=== PATIENT | female | born 2005 | race Caucasian/White ===

== ENCOUNTER 2024-10-30 15:10 | Outpatient (OUT) | payer OTHER, SELFPAY ==
--- OUTSIDE RECORDS SUMMARY | 2022-07-23 09:14 | XMS_ITS | Continuity of Care Document ---
Author Organization [facility] Address [address] [place] [phone] Phone Care Team Providers Care Bus Starter Name Role Phone Marlena Nguyễn DO Unavailable Unavailable Advance Directives Directive Yes / No Effective Date File Name No Information Encounters Encounter Description Practice Location Reason(s) For Visit Diagnoses Date Provider [facility], [address] [place] [address], [id number], [place] tel:[phone] [facility] No Information 2022 Gopi Mendiola. [address] [place], [place], [id number], [place]. tel:[phone] Family History Family Member Type Diagnosis Age At Onset No Information Payers Payer name Insurance type Covered constitution party ID Authoriza tion(s) No Information Social History Type Description Quantity Date Captured Comments Sex Female Smoking Status No Information Chief Complaint And Reason For Visit No Information History Of Present Illness Encounter Date Complaint History Of Prese nt Illness No Information Instructions Date Instruction Additional Infor mation No Information Assessments Type Assessment Date No Information
--- OUTSIDE RECORDS SUMMARY | 2024-09-27 12:43 | XMS_ITS | Continuity of Care Document ---
Author Organization [facility] Address [address] [place] [id number] Phone Care Team Providers Care Past Due Accounts Clerk Name Role Phone Barak Mata M.D. Unavailable Unavailable Allergies, Adverse Reactions, Alerts Substance Reaction Status Criticality doxycycline Skin rash(moderate)Itching(moderate)Hives (moderate) Active No Information Medications Medication Instructions Dosage Effective Dates (start - stop) Status Comments No Drug Therapy Prescribed Advance Directives Directive Yes / No Effective Date File Name No Information Encounters Encounter Description Practice Location Reason(s) For Visit Diagnoses Date Provider [facility], [address] [place] [address], [id number], [place] tel:[phone] [facility] No Information 5 Adolfo Cancino. [address] [place], [place], [id number], [place]. tel:[phone] [facility], [address] [place] [address], [id number], [place] tel:[phone] [facility] No Information 4 Agustina Bartholomew. [address] [place], [place], [id number], [place]. tel:[phone] [facility], [address] [place] [address], [id number], [place] tel:[phone] [facility] Preventive exam (chief complaint)Sc reenings. (chief complaint)ch ronic conditions (chief complaint) Body mass index (BMI) 26.0-26.9, adultEncounter for screening for depressionWell woman exam (no gynecological exam)Dietary counselingExercise counselingEncounter for immunizationImpacted cerumen of right earGeneralized anxiety disorderMajor depressive disorder, recurrent, unspecifiedBirth control counseling 4 Agustina Bartholomew. [address] [place], [id number], [place]. tel:[phone] [facility], [address] [place] [address], [id number], [place] tel:[phone] [facility] chronic conditions (chief complaint) Body mass index (BMI) 25.0-25.9, adultMajor depressive disorder, recurrent, unspecifiedGeneralized anxiety disorderAllergic drug rashChlamydia infection 4 Agustina Bartholomew. [address] [place], [place], [id number], [place]. tel:[phone] [facility], [address] [place] [address], [id number], [place] tel:[phone] [facility] depression. (chief complaint)Co ntraceptive. (chief complaint) Body mass index (BMI) 25.0-25.9, adultRecurrent major depressive episodesPoor concentrationFatigue, unspecified typeRoutine screening for STI (sexually transmitted infection)Counseling for control, oral contraceptivesEncounter to establish care with new doctorDietary counselingExercise counseling 4 Agustina Bartholomew. [address] [place], [place], [id number], [place]. tel:[phone] [facility], [address] [place] [address], [id number], [place] tel:[phone] [facility] No Information 4 Agustina Bartholomew. [address] [place], [place], [id number], [place]. tel:[phone] [facility], [address] [place] [address], [id number], [place] tel:[phone] [facility] depression (chief complaint) Depression with anxiety Jun-2 1 Deepaligustavo Zaria. [address] [place], [address], [place]. tel:[phone] [facility], [address] [place] [address], [id number], [place] tel:[phone] [facility] anxiety (chief complaint) Body mass index (BMI) 23.0-23.9, adultDepression with anxiety Jun-0 1 Deepaligustavo Zaria. [address] [place], [address], [place]. tel:[phone] [facility], [address] [place] [address], [id number], [place] tel:[phone] [facility] No Information 0 1 Deepaligretchenher Enciso. [address] [place], [address], [place]. tel:[phone] [facility], [address] [place] [address], [id number], [place] tel:[phone] [facility] Anxiety (chief complaint) Body mass index (BMI) 23.0-23.9, adultEncounter for screening for depressionDepression with anxiety May-2 1 Deepaligustavo Zaria. [address] [place], [address], [place]. tel:[phone] [facility], [address] [place] [address], [id number], [place] tel:[phone] [facility] Left ear pain. (chief complaint)Me d review. (chief complaint) BMI pediatric, 5th percentile to less than 85% for ageURI, acute 1 Gilberto Enciso. [address] [place], [address], [place]. tel:[phone] [facility], [address] [place] [address], [id number], [place] tel:[phone] [facility] No Information June. [address] [place] [address], [id number], [place]. tel:[phone] [facility], [address] [place] [address], [id number], [place] tel:[phone] [facility] control (chief complaint) control counseling 0 Gilberto Enciso. [address] [facility], [place], [address], [place]. tel:[phone] Family History Family Member Type Diagnosis Age At Onset Mother Problem (finding) depression Immunizations Vaccine Date Status Comments HPV9 administered Source: Other R egistry Influenza LAIV4 (FluMist) administered So urce: Other Registry HPV9 administered Source: Other R egistry Tdap (adol/adult) administered Source: [facility] Registry MenACWY-D (Menactra) administered Source: Other Registry Influenza LAIV4 (FluMist) administered So urce: Other Registry Influenza IIV3 (Inject) administered Sour ce: Other Registry Hep A (ped/adol) administered Source: Ot er Registry MMR administered Source: Other R egistry Varicella (Varivax) administered Source: Other Registry MMR administered Source: Other R egistry Hep A (ped/adol) administered Source: Ot er Registry IPV (polio) administered Source: Other R egistry DTaP (Daptacel) administered Source: Othe r Registry DTaP (pediatric) administered Source: Ot er Registry MMR administered Source: Other R egistry PCV7 (Prevnar) administered Source: Other Registry Hib (ActHib/Hiberix) administered Source: Other Registry MMR administered Source: Other R egistry Varicella (Varivax) administered Source: Other Registry Hep B (ped/adol) administered Source: Oth er Registry IPV (polio) administered Source: Other R egistry Hep B (ped/adol) administered Source: Oth er Registry Influenza IIV3 (Historical) administered Source: Other Registry PCV7 (Prevnar) administered Source: Other Registry Hib (ActHib/Hiberix) administered Source: Other Registry DTaP (pediatric) administered Source: Oth er Registry PCV7 (Prevnar) administered Source: Other Registry IPV (polio) administered Source: Other R egistry Hib (ActHib/Hiberix) administered Source: Other Registry DTaP (pediatric) administered Source: Oth er Registry PCV7 (Prevnar) administered Source: Other Registry IPV (polio) administered Source: Other R egistry Hib (ActHib/Hiberix) administered Source: Other Registry DTaP (pediatric) administered Source: Oth er Registry Hep B (ped/adol) administered Source: Ot er Registry Hep B (ped/adol) administered Source: Oth er Registry Hep B (ped/adol) administered Source: Ot er Registry Hep B (ped/adol) administered Source: Oth er Registry Payers Payer name Insurance type Covered constitution party ID 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) [facility] [id number] Social History Type Description Quantity Date Captured Comments Alcohol Use Details Unknown Caffeine Use Details Unknown Tobacco Use Status No Information Smoking Status No Information Sex Female Sexual Orientation Straight or heterosexual Jun Gender Identity Female Chief Complaint And Reason For Visit No Information Plan Of Treatment Date Type Action Status Goal Dietary management education , guidance, and counseling completed Goal Dietary management education , guidance, and counseling completed Goal Dietary management education , guidance, and counseling completed Goal Dietary management education , guidance, and counseling completed Goal Dietary management education , guidance, and counseling completed Goal Dietary management education , guidance, and counseling completed Referral Ordered: Neuropsych testing- Tru Madison, PhD -Psychologist (related to Poor concentration) ordered Referral Ordered: Referrals: Mental Health Counselor ordered Referral Referred To: Neuropsych testing- Tru Madison, PhD Ordered: Referrals: Psychologist. Neuropsych testing- Tru Madison, PhD. Evaluate and treat ordered Referral Ordered: Referrals: Mental Health Counselor. Evaluate and treat ordered History Of Present Illness Encounter Date Complaint History Of Prese nt Illness Chronic Conditions *See Chronic Conditions Template chronic conditions *See Chronic Conditions HPI Screenings. annual: 09/13/23pa p/hpv: screening at age 19mammo: screening at age 38. No Family H/O Breast Cancercolon: screening at age 45. No Family H/O Colon cancerDexa: screening at age 65.smoking: non-smokerlabs: 05/19/23iv/hcv: negative 05/19/23sti screening: abnormal 05/19/23 and treated --> repeat negativeSleep has improved significantly.Diet: She has started coking more meals at home and has been cutting back on fast food. She is eating 2-3 meals per day. She does snack a lot during the day. Always lunch and sometimes dinner. She drinks 1 cup of coffee in the morning. She has cut back on soda and caffeine. She has a water bottle that she takes to work, but doesn't know how much. Exercise: no exerciseSocial history- She lives with her grandparent. She feels safe at home. 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 She was told to call again if she gets state insurance. Preventive exam The patient stat es using oral contraceptive for control. Last LMP was 08/15/2023. Patient's menses is regular with normal flow with a frequency of every 28 days. Negative for: breast discharge, breast lump(s) and breast pain. Positive for: breast self exam. Associated symptoms include anxiety and depression. Pertinent negatives include abnormal bleeding (hematology), abnormal vaginal bleeding, decreased libido, difficulty falling sleep, sleep disturbances, urinary incontinence, urinary urgency, vaginal discharge and vaginal itching. chronic conditions *See Chronic Conditions HPI Chronic Conditions *See Chronic Conditions Template depression. Patient reports that a few years ago she came in to talk about her mental health and she was started on medications. She reports that she has noticed a lot of symptoms that she as experiencing then have started up again. Main symptoms - no energy, not wanting to get out of bed, crying a lot. She denies any SI/HI. Several years ago she did use to self harm - cutting. But is has been at least 2 years. She does feel like sometimes it is difficult to maintain focus and concentration. She does misplace things. Going though school she got ok grades - never failed a class. She had a hard time completing homework. She admits to fidgeting a lot. She is currently in her first year university doing online schooling through [employer]. Going ok. She has also had feelings of dreading going to work and feeling burnt out. 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 Family history of mental health disease - biological mother anxiety, depression, ADHD and a lot of mother's family had these conditions as well. Father also has depression, anxiety, and ADHD. She does have younger siblings who have ADHD a sister and brother. Patient has never been assessed for ADHD. Denies any family history of bipolar disorder or Autism. She reports history of trauma. She doesn't want to talk more about this, but has been in therapy in the past. Sleep: it is really difficult for her to fall asleep. She usually goes to sleep around 10/11 pm, but she has been struggling to fall asleep these last several weeks. When she eventually falls asleep, she will wake up once overnight occasionally. She wakes up between 6-7AM. She reports that when she cries it is usually at night. Diet: was eating a lot of fast food because she doesn't know how to really cook. She has tried to cut back in order to save some money. She is eating 1- 2 meals per day. Always lunch and sometimes dinner. She drinks 1 cup of coffee in the morning. She has cut back on soda and caffeine. She has a water bottle that she takes to work, but doesn't know how much. Exercise: no exerciseSocial history- She lives with her grandparent. She feels safe at home. - Rare alcohol use- Denies any nicotine products- Denies any recreational drug usePrevious treated with Wellbutrin and Lexapro in the past. The Wellbutrin helped more. Contraceptive. Patient would li ke to go back on control pills - tolerated the Alesse well. Patient states that she is currently sexually active with one sexual partner. She identifies as heterosexual. Her periods have been more painful/cramping and heavier these last several months. LMP 05/12/23. Usually lasts 3-4 days, q 28 days. She is not having any pain with intercourse or vaginal discharge. depression Associated sympt oms include depression, fatigue, feelings of guilt/worthlessness, headaches and suicidal ideation. Pertinent negatives include decreased appetite, difficulty concentrating, hallucinations, homicidal ideation, nausea or social withdrawal. Additional information: would like lexapro increased - doesn't feel like they are helped. depression (comments) Feels thin gs are OK at home and school, has had some suicidal thought, she has no plan or intent.Feels she is sleeping OK, falls asleep in her classes, she had not done that in the past, anxiety This is a follow up visit. There is continuation of initial symptoms. There is no improvement of initial symptoms or worsening of previously reported symptoms. The patient reports functioning as somewhat difficult. The patient presents with anxious/fearful thoughts, depressed mood, difficulty concentrating and thoughts of or suicide but denies difficulty falling asleep, difficulty staying asleep, excessive worry, fatigue, feelings of guilt, feelings of invulnerability, loss of appetite or poor judgment. The patient's risk factors include family history of anxiety. The anxiety is not with alcohol use, drug use, lack of sleep or social interactions. The patient's relieving factors are sunlight.The patient's symptoms are not relieved by drugs. The anxiety is associated with irritability. The patient denies any chronic pain, headache, nausea, vomiting and weight gain. Additional information: no plan or action for suicide, feels life at home and school are OK, she is cutting arms and legs at times. Sleep OK, no pot or street drugs, no ETOH She has a better appetitie since being on her meds, . Anxiety (comments) SHE is in 11t h grade, school is OK, good grades, no concerns with friends, she is not in sports at this time, but intends to do cheer. feels things are good at home.she is falling asleep but has problems staying asleep, feels tired in the AM, stays on her school schedule on the weekends,weight down 7#, no appetitie Anxiety This is an initi al visit. There is worsening of previously reported symptoms. The patient reports functioning as very difficult. The patient presents with anxious/fearful thoughts, compulsive thoughts, depressed mood, difficulty concentrating, difficulty staying asleep, diminished interest or pleasure, excessive worry, fatigue, feelings of guilt, loss of appetite and thoughts of or suicide but denies decreased need for sleep, difficulty falling asleep, easily startled, increased energy, hallucinations, poor judgment, racing thoughts or restlessness. The patient's risk factors include childhood abuse or neglect, family history of depression, family history of anxiety, family history of bipolar disorder, relationship problems and social isolation. The patient's risk factors exclude alcoholism, chronic illness, of a friend or loved one, drug abuse, financial worries, history of depression, history of suicidal attempts, recent childbirth, unemployment and victim of abuse or violence. The Anxiety is aggravated by conflict or stress, menstruation and winter season but not with alcohol use, lack of sleep or social interactions. The Anxiety is associated with irritability. The patient denies any headache, nausea, sweating, urinary frequency, vomiting and weight gain. Additional information: SHe has had this since middle school, she has been in counseling in the past and it never helped, started in ?January,. Med review. Pt. would like a refill on BC pills. LMP 03/15/2020. Left ear pain. Ear pain started x2 days ago and a slight sore throat. Denies fever, coughing, headache.Pt. came in with step mom who was tested for CV-19 yesterday; did not disclose at front office attendant. Rapid was negative but 2nd is not back. Asked her to leave office since we didn't have her results. Step mom left. control Would like to ta lk about control would like the pill. Medications Administered Medication Instructions Dosage Effective Dates (start - stop) Status Comments No Drug Therapy Prescribed Instructions Date Instruction Additional Infor dave Irrigated successfully. Related to Impacted cerumen of right ear You are doing well o n your current control, medication refill sent to pharmacy. You are up-to-date on your STI screening. Related to control counseling Management above Related to Gene ralized anxiety disorder You are doing well, no changes to medication: Wellbutrin XL 150 mg daily. The neuropsych eval for ADHD is on hold due to cost. Follow-up 6 months. Related to Major depressive disorder, recurrent, unspecified Discussed diet/lifes tyle changes that may help with weight loss and overall health. Discussed benefits of increasing fruits and vegetables to 3-5 servings daily, and whole grains while limiting processed foods, sugar, and salt. Make sure to drink at least 64 oz of water with limited juice, alcohol, or soda. Related to Dietary counseling Aerobic exercise enc ouraged, 30min 4-5 days a week. (150min/week total) for maintenance. Break up this time into smaller portions. Incorporate exercise into daily activities and encouraged including friends and family. Related to Exercise counseling Annual advice; Vital signs, risk factors, age appropriate preventative screening, laboratory testing and vaccinations were reviewed and addressed. Please take medications as prescribed and follow up as scheduled.Discussed the importance of regular dental check-ups every 6-12 months and an eye exam every 1-2 years. You will be due for your first pap smear next year. Related to Well woman exam (no gynecological exam) Up to date on vaccinations Relat ed to Encounter for immunization Dietary management e ducation, guidance, and counseling Related to Body mass index [BMI] 26.0-26.9, adult Standardized adult d epression screening tool completed Related to Encounter for screening for depression Previous positive ch lamydia screening, completed course of doxycycline. Repeat testing has been ordered. Related to Chlamydia infection Consider daily antih istamine such as Zyrtec, Claritin, or Zyrtec for 5 days +/- famotidine 20 mg twice per day x 5 days. Related to Allergic drug rash Management above Related to Gene ralized anxiety disorder Mood is doing much b lit - continue the Wellbutrin XL 150 mg daily. Follow up 3 months, sooner if needed. Changing referral for neuropsychic testing to [facility].Previously referred to therapy, in the phone tag loop. Related to Major depressive disorder, recurrent, unspecified Dietary management e ducation, guidance, and counseling Related to Body mass index [BMI] 25.0-25.9, adult Discussed diet/lifes tyle changes that may help with weight loss and overall health. Discussed benefits of increasing fruits and vegetables to 3-5 servings daily, and whole grains while limiting processed foods, sugar, and salt. Make sure to drink at least 64 oz of water with limited juice, alcohol, or soda. Related to Dietary counseling Aerobic exercise enc ouraged, 30min 4-5 days a week. (150min/week total) for maintenance. Break up this time into smaller portions. Incorporate exercise into daily activities and encouraged including friends and family. Related to Exercise counseling Screening ordered. Related to Ro utine screening for STI (sexually transmitted infection) Sent prescription fo r oral control pills to the pharmacy. Recommend initiating beginning of your next menstrual cycle. Do recommend using condoms to help prevent sexually transmitted infections. Urine test ordered to rule out before initiating control. Related to Counseling for control, oral contraceptives Previously on Wellbu blayne and tolerated it well. Update labs have been ordered. Start with Wellbutrin XL 150 mg daily x 2 weeks. If you are tolerating the medication and you would like to increase to 300 mg at one time you can. We reviewed the most common side effects of medication. Consider starting therapy. Will send a referral to our behavioral health team. You can also look for a therapist using the website [employer].If you are feeling actively suicidal, go to the ED!The suicide hotline number is 863-605-5096Ufu can also text HELP to 189-785.Follow up 1 month. Related to Recurrent major depressive episodes Referral for neurops ychiatric testing for ADHD assessment. Related to Poor concentration Will check blood wor k to look for organic causes of fatigue and depression. Provided handout on sleep hygiene. Related to Fatigue, unspecified type Dietary management e ducation, guidance, and counseling Related to Body mass index [BMI] 25.0-25.9, adult Dietary management e ducation, guidance, and counseling Related to Body mass index [BMI] 23.0-23.9, adult Dietary management e ducation, guidance, and counseling Related to Body mass index [BMI] 23.0-23.9, adult Management of mental health karthik tment Related to Encounter for screening for depression for child or adolescent Drinking plenty of f luids. Water, juice, clear broth or warm lemon water are good choices. Avoid caffeine and alcohol, which can dehydrate you. E ating chicken soup. Chicken soup and other warm fluids can be soothing and can loosen congestion. R esting. If possible, stay home from work or school if you have a fever or a bad cough or are drowsy after taking medications. This will give you a chance to rest as well as reduce the chances that you'll infect others. A djusting your room's temperature and humidity. Keep your room warm, but not overheated. If the air is dry, a cool-mist humidifier or vaporizer can moisten the air and help ease congestion and coughing. Keep the humidifier clean to prevent the growth of bacteria and molds S oothing your throat. A saltwater gargle 1/4 to 1/2 teaspoon salt dissolved in a 4-ounce to 8-ounce glass of warm water. Or 1/2 honey, 1/2 lemon mix. Related to URI, acute Exercises education, guidance, and counseling Related to Body mass index [BMI] pediatric, 5th percentile to less than 85th percentile for age Dietary management e ducation, guidance, and counseling Related to Body mass index [BMI] pediatric, 5th percentile to less than 85th percentile for age Assessments Type Assessment Date No Information
--- OUTSIDE RECORDS SUMMARY | 2024-10-25 14:00 | XMS_ITS | Encounter Summary ---
Demographics Address [address] [place] [address] Home Phone Mobile Phone Preferred Language en Marital Status Unmarried Episcopalian Affiliation Unknown Race Other Race Ethnic Group Unknown Author Organization [facility] Address [address] [place] [address] Care Team Providers Care Career Developer Name Role Phone Unavailable Primary Care Provider Unavailabl e Encounter Details Date Type Department Care Team (Latest Contact Info) Description 10/25/2024 2:00 PM EDT Ancillary Procedure BRITTANY KRUSE [address] [place] [address] Missed menses; Positive urine test ([facility]) Social History Tobacco Use Types Packs/Day Years Used Date Smoking Tobacco: Never Assessed Estimated Date of Delivery Comme nts Yes 05/23/2025 Based on last me nstrual period of 08/16/2024 Sex and Gender Information Value Date Recorded Sex Assigned at Not on file Legal Sex Female 10:34 AM EDT Gender Identity Not on file Sexual Orientation Not on file documented as of this encounter Plan of Treatment Upcoming Encounters Date Type Department Care Team (Late st Contact Info) Description 11/26/2024 9:20 AM EDT Routine BRITTANY KRUSE [address] [place] [address] Bernardo Montes DO [address] [place], [place] [id number] documented as of this encounter Procedures Procedure Name Priority Date/Time Associated Diagnosis Comments US OB TRANSVAGINAL Routine 10/25/2024 2: 42 PM EDT Missed menses [facility] documented in this encounter Results * US OB transvaginal (10/25/2024 2:42 PM EDT) Anatomical Region Laterality Modality Body Ultrasound 10/28/2024 8:22 AM EDT Narrative 10/28/2024 8:22 AM EDT EXAM: US OB TRANSVAGINAL HISTORY: Dating. COMPARISON: None available. TECHNIQUE: Two-dimensional transvaginal grayscale ultrasound imaging of the pelvis was performed. Color Doppler evaluation of the ovaries was also performed. FINDINGS: The uterus demonstrates a normal homogeneous echotexture. The cervix measures 4.0 cm in length and the cervical os is closed. The right ovary measures 2.4 x 2.0 x 2.1 cm and demonstrates a normal echotexture. There is normal color Doppler flow. The left ovary measures 2.6 x 1.9 x 2.1 cm and demonstrates a normal echotexture. There is normal color Doppler flow. No fluid is present within the cul-de-sac. There is a single, live intrauterine gestation identified with a heart rate of 148 beats per minute and a crown-rump length measurement of 2.9 cm, correlating to a gestational age of 9 weeks 5 days (+/- 6 days). There is no subchorionic hemorrhage visualized. A yolk sac is visualized. IMPRESSION: 1. Single, live intrauterine gestation 10 weeks, 0 days by LMP. Today's ultrasound measurements correlate with a gestational age of 9 weeks 5 days (+/- 6 days). CORONA by today's ultrasound is 05/25/2025. 2. Normal color Doppler evaluation of the bilateral ovaries. Interpreted by: Electronically signed by PRATEEK BAUGH II, MD, PHD at 28-Oct-2024 08:20:23 AM [facility] Procedure Note Prateek Baugh MD - 10/28/2024 EXAM: US OB TRANSVAGINAL HISTORY: Dating. COMPARISON: None available. TECHNIQUE: Two-dimensional transvaginal grayscale ultrasound imaging ofthe pelvis was performed. Color Doppler evaluation of the ovaries was alsoperformed. FINDINGS: The uterus demonstrates a normal homogeneous echotexture. The cervixmeasures 4.0 cm in length and the cervical os is closed. The right ovary measures 2.4 x 2.0 x 2.1 cm and demonstrates a normalechotexture. There is normal color Doppler flow. The left ovary measures 2.6 x 1.9 x 2.1 cm and demonstrates a normalechotexture. There is normal color Doppler flow. No fluid is present within the cul-de-sac. There is a single, live intrauterine gestation identified with a fetalheart rate of 148 beats per minute and a crown-rump length measurement of2.9 cm, correlating to a gestational age of 9 weeks 5 days (+/- 6 days).There is no subchorionic hemorrhage visualized. A yolk sac isvisualized. IMPRESSION: 1. Single, live intrauterine gestation 10 weeks, 0 days by LMP. Today'sultrasound measurements correlate with a gestational age of 9 weeks 5days (+/- 6 days). CORONA by today's ultrasound is 05/25/2025. 2. Normal color Doppler evaluation of the bilateral ovaries. Interpreted by: Electronically signed by PRATEEK BAUGH II, MD, PHD [id number] 08:20:23 AM [facility] us Bernardo PEARSON OB US PROCEDURES Final Resul t documented in this encounter Visit Diagnoses Diagnosis Missed menses Positive urine test ([facility]) documented in this encounter
--- OUTSIDE RECORDS SUMMARY | 2024-10-25 14:30 | XMS_ITS | Encounter Summary ---
Demographics Address [address] [place] [address] Home Phone Mobile Phone Preferred Language en Marital Status Unmarried Synagogue Affiliation Unknown Race Other Race Ethnic Group Unknown Author Organization [facility] Address [address] [place] [address] Care Team Providers Care Caustic Room Operator Name Role Phone Unavailable Primary Care Provider Unavailabl e Encounter Details Date Type Department Care Team (Late st Contact Info) Description 10/25/2024 2:30 PM EDT Initial [facility] [address] [place] [place] [id number] GA: 10w0d Social History Tobacco Use Types Packs/Day Years Used Date Smoking Tobacco: Never Assessed Estimated Date of Delivery Comme nts Yes 05/23/2025 Based on last me nstrual period of 08/16/2024 Sex and Gender Information Value Date Recorded Sex Assigned at Not on file Legal Sex Female 10:34 AM EDT Gender Identity Not on file Sexual Orientation Not on file documented as of this encounter Last Filed Vital Signs Vital Sign Reading Time Taken Comments Blood Pressure - - Pulse - - Temperature - - Respiratory Rate - - Oxygen Saturation - - Inhaled Oxygen Concentration - - Weight - - Height 160 cm (5' 3 ) 10/25/2024 2:43 PM EDT Body Mass Index - - documented in this encounter Progress Notes * Meena Bowen LPN - 10/25/2024 2:30 PM EDT Reason for Appointment: Patient ID: Kamini Batista is a 19 y.o. female who presents for No chief complaint on file. Patient presents today for a Nurse OB Intake appointment. Patient is 10w0d with a Estimated Date ofDelivery: 05/23/25 OB History Para Term AB Living 5 2 2 2 SAB IAB Ectopic Multiple Live Births 2 # Outcome Date GA Lbr Conrado/2nd Weight Sex Type Anes PTL Lv 5 Current 4 Term 02/21/24 7 lb 1 oz F Vag-Spont 3 2022 2 Term 11/04/21 6 lb 8 oz F Vag-Spont 1 2020 Current Medications: has a current medication list which includes the following prescription(s): ondansetron odt. Medical History: Active Ambulatory Problems Diagnosis Date Noted No Active Ambulatory Problems Resolved Ambulatory Problems Diagnosis Date Noted No Resolved Ambulatory Problems No Additional Past Medical History No family history on file. Social History Tobacco Use Smoking status: Not on file Smokeless tobacco: Not on file Substance Use Topics Alcohol use: Not on file Drug use: Not on file Past Surgical History: Procedure Laterality Date D&C FIRST TRIMESTER / TX INCOMPLETE / MISSED / SEPTIC / INDUCED No Known Allergies Vitals: There is no height or weight on file to calculate BMI. BP: Patient's last menstrual period was 08/16/2024. Assessment/Plan Diagnoses and all orders for this visit: Missed menses - US OB transvaginal; Future - Type and screen; Future - ABO/Rh; Future - CBC and differential - Hemoglobin A1c - RPR - Rubella antibody, IgG - Hepatitis B surface antigen - Hepatitis C antibody - HIV-1 and HIV-2 antibodies - Urine culture - POCT , urine manually resulted - POCT urinalysis dipstick manually resulted Positive urine test ([facility]) - US OB transvaginal; Future , unspecified gestational age ([facility]) - Type and screen; Future - ABO/Rh; Future - CBC and differential - Hemoglobin A1c - RPR - Rubella antibody, IgG - Hepatitis B surface antigen - Hepatitis C antibody - HIV-1 and HIV-2 antibodies - Rapid drug screen, urine; Future Encounter for supervision of normal first in first trimester ([facility]) - Rapid drug screen, urine; Future Nausea - ondansetron ODT (Zofran-ODT) 4 MG disintegrating tablet; Take 1 tablet (4 mg) by mouth every 6 (six) hours if needed for nausea or vomiting Nurse Note: Follow Up: Patient is to have labs drawn at directed and return to office for initial OB appointment with provider. Patient may call office as needed with any concerns or questions. Nurse Visit Completed by: Meena Bowen LPN documented in this encounter Plan of Treatment Upcoming Encounters Date Type Department Care Team (Late st Contact Info) Description 11/26/2024 9:20 AM EDT Routine [facility] [address] [place] [address] Bernardo Montes DO [address] [place] [address] Scheduled Orders Name Type Priority Associated Diagnoses Orde r Schedule Type and screen Lab Routine Missed menses , unspecified gestational age ([facility]) Expected: 10/25/2024 (Approximate), Expires: 10/25/2025 ABO/Rh Lab Routine Missed menses , unspecified gestational age ([facility]) Expected: 10/25/2024 (Approximate), Expires: 10/25/2025 CBC and differential Lab Routine Missed menses , unspecified gestational age ([facility]) Ordered: 10/25/2024 Hemoglobin A1c Lab Routine Missed menses , unspecified gestational age ([facility]) Ordered: 10/25/2024 RPR Lab Routine Missed menses , unspecified gestational age ([facility]) Ordered: 10/25/2024 Rubella antibody, IgG Lab Routine Missed menses , unspecified gestational age ([facility]) Ordered: 10/25/2024 Hepatitis B surface antigen Lab Routine Missed menses , unspecified gestational age ([facility]) Ordered: 10/25/2024 Hepatitis C antibody Lab Routine Missed menses , unspecified gestational age ([facility]) Ordered: 10/25/2024 HIV-1 and HIV-2 antibodies Lab Routine Missed menses , unspecified gestational age ([facility]) Ordered: 10/25/2024 Urine culture Microbiology Routine Missed menses Ordered: 10/25/2024 Rapid drug screen, urine Lab Routine , unspecified gestational age ([facility]) Encounter for supervision of normal first in first trimester ([facility]) Expected: 10/25/2024 (Approximate), Expires: 10/25/2025 documented as of this encounter Procedures Procedure Name Priority Date/Time Associated Diagnosis Comments POCT , URINE Routine 10/25/2024 3:12 PM EDT Missed menses POCT URINALYSIS DIPSTICK Routine 10/25/2024 3:12 PM EDT Missed menses documented in this encounter Results * (ABNORMAL) POCT urinalysis dipstick manually resulted (10/25/2024 3:12 PM EDT) Color, UA [place] Clarity, UA Clear Glucose, UA Negative Negative - 2000(110) ++++ mg/dL Bilirubin, UA Negative Negative - 4(70) +++ mg/dL Ketones, UA Negative Negative - 160(16) ++++ mg/dL Spec Grav, UA 1.025 1 - 1.03 Blood, UA Negative Negative - 50 Cj/mcL pH, UA 6.0 5 - 9 Protein, UA Negative Negative - 2000(20) ++++ mg/dL Urobilinogen, UA 1.0 0.2 - 12 mg/dL Leukocytes, UA Negative Negative - 500+++ Sol/mcL Nitrite, UA Negative Negative - Positive Urine 10/25/2024 3:12 PM EDT us Bernardo Simon DO POINT OF CARE TEST ENTER/EDIT OR DERABLES Final Result * POCT , urine manually resulted (10/25/2024 3:12 PM EDT) Preg Test, Ur Positive Negative Urine 10/25/2024 3:12 PM EDT us Bernardo Simon DO POINT OF CARE TEST ENTER/EDIT OR DERABLES Final Result * US OB transvaginal (10/25/2024 2:42 PM [...] II, MD, PHD at 28-Oct-2024 08:20:23 AM [facility] Procedure Note Prateek Baugh MD - [...] signed by PRATEEK BAUGH II, MD, PHD [id number] 08:20:23 AM [facility] us Bernardo Montes DO IMG OB US PROCEDURES Final Resul t documented in this encounter Visit Diagnoses Diagnosis Missed menses Positive urine test ([facility]) Missed menses Positive urine test ([facility]) , unspecified gestational age ([facility]) Encounter for supervision of normal first in first trimester ([facility]) Nausea Nausea alone documented in this encounter
--- OUTSIDE RECORDS SUMMARY | 2024-10-30 15:17 | XMS_ITS | Encounter Summary ---
Author Organization [facility] Address [address] [place] [address] Care Team Providers Care Destaticizer Feeder Name Role Phone Unavailable Primary Care Provider Unavailabl e Encounter Details Date Type Department Care Team (Late st Contact Info) Description 10/25/2024 Abstract BRITTANY KRUSE [facility] [place] [phone] Bernardo Montes, DO [address] [place], [place] [address] Social History Tobacco Use Types Packs/Day Years [...] 11/26/2024 9:20 AM EDT Routine BRITTANY KRUSE [facility] [place] [phone] Bernardo Montes, [address] [place], [facility] documented as of this encounter Visit Diagnoses Not on filedocumented in this encounter
--- OUTSIDE RECORDS SUMMARY | 2024-10-30 15:17 | XMS_ITS | Clinical Summary ---
Demographics Address [address] [place] [address] Home Phone Mobile Phone Preferred Language en Marital Status Unmarried Restoration Affiliation Unknown Race Other Race Ethnic Group Unknown Author Organization [facility] Address [address] [place] [address] Care Team Providers Care Workday Manager Name Role Phone Unavailable Primary Care Provider Unavailabl e Allergies No known active allergies Medications ondansetron ODT (Zofran-ODT) 4 MG disintegrating tabletIndications:N ausea Take 1 tablet (4 mg) by mouth every 6 (six) hours if needed for nausea or vomiting 30 tablet 2 5 11/25/19 25 Active Encounters Date Type Department Care Team Description 10/25/2024 2:30 PM [place] [address] GA: 10w0d 10/25/2024 2:00 PM EDT [place] [address] Missed menses; Positive urine test ([facility]) 10/25/2024 [place] [address] Bernardo Montes DO 10/25/2024 [place] [address] Bernardo Montes DO from Last 3 Months Social History Tobacco Use Types Packs/Day Years Used Date Smoking Tobacco: Never Assessed Estimated Date of Delivery Comme nts Yes 05/23/2025 Based on last me nstrual period of 08/16/2024 Sex and Gender Information Value Date Recorded Sex Assigned at Not on file Legal Sex Female 10:34 AM EDT Gender Identity Not on file Sexual Orientation Not on file Last Filed Vital Signs Vital Sign Reading Time Taken Comments Blood Pressure - - Pulse - - Temperature - - Respiratory Rate - - Oxygen Saturation - - Inhaled Oxygen Concentration - - Weight - - Height 160 cm (5' 3 ) 10/25/2024 2:43 PM EDT Body Mass Index - - Plan of Treatment Upcoming Encounters Date Type Department Care Team (Late st Contact Info) Description 11/26/2024 9:20 AM EDT Routine [facility] [address] [place] [phone] SimonBernardo cronin DO [address] [facility] [place] [address] Procedures Procedure Name Priority Date/Time Associated Diagnosis Comments POCT URINALYSIS DIPSTICK Routine 10/25/2024 3:12 PM EDT Missed menses POCT , URINE Routine 10/25/2024 3:12 PM EDT Missed menses OB TRANSVAGINAL Routine 10/25/2024 2: 42 PM EDT Missed menses Positive urine test ([facility]) from Last 3 Months Results * POCT , urine manually resulted (10/25/2024 3:12 PM EDT) Preg Test, Ur Positive Negative Urine 10/25/2024 3:12 PM EDT Bernardo Montes DO POINT OF CARE TEST ENTER/EDIT OR DERABLES Final Result * (ABNORMAL) POCT urinalysis dipstick manually resulted [...] Urine 10/25/2024 3:12 PM EDT us Bernardo Tateo DO POINT OF CARE TEST ENTER/EDIT OR [...] II, MD, PHD at 28-Oct-2024 08:20:23 AM [facility] Procedure Note Prateek Baugh MD - [...] signed by PRATEEK BAUGH II, MD, PHD [id number] 08:20:23 AM [facility] us Bernardo Montes DO IMG OB US PROCEDURES Final Resul t from Last 3 Months Insurance * Guarantor: Kamini Batista Account Type Relation to Patient Date of Phone Billing Address Personal/Family Self [address] [facility] [address] [place] [address] [employer] MEDICAID
--- OUTSIDE RECORDS SUMMARY | 2024-10-30 15:17 | XMS_ITS | Encounter Summary ---
Author Organization [facility] Address [address] [place] [address] Care Team Providers Care Snowboarding Instructor Name Role Phone Unavailable Primary Care Provider Unavailabl e Encounter Details Date Type Department Care Team (Late st Contact Info) Description 10/25/2024 Abstract BRITTANY KRUSE [facility] [place] [phone] Bernardo Montes, DO [address] [place], [place] [address] Social History Tobacco Use Types Packs/Day Years [...] 11/26/2024 9:20 AM EDT Routine BRITTANY KRUSE [facility] [place] [phone] Bernardo Montes, [address] [place], [facility] documented as of this encounter Visit Diagnoses Not on filedocumented in this encounter
--- OUTSIDE RECORDS SUMMARY | 2024-10-30 15:18 | XMS_ITS | Patient Health Record ---
Author Organization Coleman dickens MD, [facility] Address [address] [place] [address] Care Team Providers Care Creative Writing Professor Name Role Phone Earnest Wallace DO Primary Care Provider John Cee MD, Brianda Unavailable [phone] Social History Tobacco Use: Social History Observation Description Date Details (start date - stop date) Never Smoker NA - NA Smoking: Question Answer Notes Patient is a nonsmoker Section Notes: 4-6 glasses of fluid daily ( water, milk & juice) 4-6 glasses of fluid daily ( water, milk & juice) 4-6 glasses of fluid daily ( water, milk & juice) 4 glasses of fluid daily 4-6 glasses of fluid daily ( water, milk & juice) Problems Problem Type SNOMED Code ICD Code Onset Dates Problem Status W/U Status Risk Notes Problem CARDIAC MURMURS NEC (785.2) Active confirmed Plan Of Treatment Pending Test Test Name Order Date Echo Full with Color/ Doppler 10/23/2009 Echo Full with Color/ Doppler 02/23/2012 Insurance Providers Payer Name Payer Address Payer Phone Subscriber Number Group Number Insured Name Patient Relationship to Insured Coverage Start Date Coverage End Date [employer] [address] [address] [place] [address] [id number] [id number] Kamini Lyons Self - patient is the insured 5 Medical (General) History Medical History History ICD Code Cardiac murmur since 1 year of age
--- OUTSIDE RECORDS SUMMARY | 2024-10-30 15:18 | XMS_ITS | Clinical Summary ---
Demographics Address [address] [place] [address] Mobile Phone Email Address Preferred Language Estonian Marital Status Significant Other Christian Affiliation Unknown Race Unknown Ethnic Group Unknown Author Organization [facility] Address [id number] [address] [place] [address] Care Team Providers Care Telegraph Installer Name Role Phone Cherelle Valdez Davion BIRD TENDER-FILTER PRESS OPERATOR Primary Care Provider + Allergies No known active allergies Medications vit no.[id number] c acid ( VITAMIN) 27 mg iron- 800 mcg tabletIndication s:Lactating mother Take 1 tablet by mouth in the morning. 90 tablet 3 03/08/2024 Active Active Problems No known active problems Immunizations Immunization Administration Dates Next Due MMR 02/23/2024(Deferred: - pt immune ) RSV, bivalent, protein subun it RSVpreF, diluent reconstituted, 0.5 mL, PF 01/25/2024 Tdap 02/23/2024(Deferred: - received in ),01/09/2024 Varicella 02/23/2024() Family History Medical History Relation Name Comments No Known Problems Father Diabetes Mother Diabetes Paternal Grandmother Diabetes Paternal Uncle Relation Name Status Comments Father Mother Alive Paternal Grandmother Paternal Uncle Alive Social History Tobacco Use Types Packs/Day Years Used Date Smoking Tobacco: Never Smokeless Tobacco: Never Tobacco Cessation:Counseling Given: Not Answered Alcohol Use Standard Drinks/Week Comments Not Currently 0 (1 standard drink = 0.6 oz pur e alcohol) [facility] Utilities Answer Date Recorded In the past 12 months has th e electric, gas, oil, or water company threatened to shut off services in your home? No 02/22/2024 Overall Financial Resource Strain (CARDIA) Answe r Date Recorded How hard is it for you to pa y for the very basics like food, housing, medical care, and heating? Not very hard 02/21/2024 PRAPARE - Transportation Answer Date Re corded In the past 12 months, has l ack of transportation kept you from medical appointments or from getting medications? No 02/04 In the past 12 months, has l ack of transportation kept you from meetings, work, or from getting things needed for daily living? No 02/22/2024 [place] Depression Scale Answer Date Recorded [place] Depression Scale Total 0 04/05/2024 The thought of harming myself has occurred to me . Never 04/05/2024 Housing Instability Answer Date Recorde d Are you worried or concerned that in the next two months you may not have stable housing that you own, rent or stay in as a part of a household? No 02/22/2024 Hunger Screening Answer Date Recorded Within the past 12 months we worried whether our food would run out before we got money to buy more. Never True 03/15/2024 Within the past 12 months th e food we bought just didn't last and we didn't have money to get more. Never True 03/15/2024 Comments No Sex and Gender Information Value Date Recorded Sex Assigned at Female 12/02/2023 11:00 AM EDT Legal Sex Female 10:58 AM EDT Gender Identity Female 12/02/2023 11:00 AM EDT Sexual Orientation Not on file Last Filed Vital Signs Vital Sign Reading Time Taken Comments Blood Pressure 118/64 04/05/2024 2:39 PM EST Pulse 67 03/16/2024 11:38 AM EST Temperature 36.7 C (98.1 F) 03/16/2024 10:38 AM EST Respiratory Rate 15 03/16/2024 11:38 AM EST Oxygen Saturation 100% 03/16/2024 11:38 AM EST Inhaled Oxygen Concentration - - Weight 64.9 kg (143 lb) 04/05/2024 2:39 PM EST Height 157.5 cm (5' 2 ) 04/05/2024 2:39 PM EST Body Mass Index 26.16 04/05/2024 2:39 PM EST Plan of Treatment Health Maintenance Due Date Last Done Comments Adult BMI Follow Up Plan 07/27/2021 Chlamydia Screening 07/12/2024 07/13/2023 Pap Smear 07/27/2024 Influenza Vaccine 11/05/2024 Adult BMI Screening 04/05/2025 04/05/2024 Depression Screening 04/05/2025 04/05/2024 Tobacco Screening 04/05/2025 04/05/2024 DTaP,Tdap and Td Vaccines (2 - Td or Tdap) 01/08/2034 01/09/2024 Medical Devices Not on file Procedures Procedure Name Priority Date/Time Associated Diagnosis Comments CHLAMYDIA/GC BY PCR ZEYNEP SWAB Routine 07/13/2023 from Last 3 Months or Most Recently Relevant to Health Maintenance Results * Chlamydia/GC by PCR Zeynep Swab (07/13/2023) Chlamydia Dna(Pcr) Negative MANUALLY TRANSCRIBED RESULTS Gonorrhoeae Dna(Pcr) Negative MANUALLY TRANSCRIBED RESULTS us Julianne Baca MD MICROBIOLOGY - GENERAL ORDERAB LES Final Result MANUALLY TRANSCRIBED RESULTS from Last 3 Months or Most Recently Relevant to Health Maintenance Insurance * Guarantor: Kamini Coles Account Type Relation to Patient Date of Phone Billing Address Personal/Family Self 2005 [address] [place] [address] [facility] MEDICAID Advance Directives * Full Code (Latest Code Status on File) Date Activated Date Inactivated Comments 02/21/2024 11:24 AM 02/23/2024 1:21 PM Care Teams Telegraph Installer Relationship Specialty Start Date End Date Cherelle Valdez, BIRD TENDER-FILTER PRESS OPERATOR [address] [place] [address] PCP - General Obstetrics & Gynecology 03/15/24
--- OUTSIDE RECORDS SUMMARY | 2024-10-30 15:18 | XMS_ITS | Encounter Summary ---
Demographics Address [address] [place] [address] Mobile Phone Email Address Preferred Language Citizen Of The [place] Marital Status Significant Other Orthodoxy Affiliation Unknown Race Unknown Ethnic Group Unknown Author Organization [facility] tem Address [id number] [address] [place] [address] Care Team Providers Care Food And Nutrition Services Assistant Name Role Phone Cherelle Valdez IRONWORKER WIRE FENCE ERECTOR-POSTAL SERVICE CLERK Primary Care Provider + Encounter Details Date Type Department Care Team (Late st Contact Info) Description 12/27/2023 [facility] Only [facility]Gynecology [address] [place] [address] Ref Prov, [place] [address] Social History Tobacco Use Types Packs/Day Years Used Date Smoking Tobacco: Never Smokeless Tobacco: Never Alcohol Use Standard Drinks/Week Comments Not Currently 0 (1 standard drink = 0.6 oz pur e alcohol) Hunger Screening Answer Date Recorded Within the past 12 months we worried whether our food would run out before we got money to buy more. Never True 12/26/2023 Within the past 12 months th e food we bought just didn't last and we didn't have money to get more. Never True 12/26/2023 Comments Yes Sex and Gender Information Value Date Recorded Sex Assigned at Female 12/02/2023 11:00 AM EDT Legal Sex Female 10:58 AM EDT Gender Identity Female 12/02/2023 11:00 AM EDT Sexual Orientation Not on file documented as of this encounter Plan of Treatment Not on file documented as of this encounter Procedures Procedure Name Priority Date/Time Associated Diagnosis Comments EXTERNAL LAB ORDERS / RESULTS Routine 12/27/2023 3:41 PM EDT documented in this encounter Results * External Lab Orders / Results (12/27/2023 3:41 PM EDT) us Not In System Ref Prov LAB ORDERABLES Final Res ult documented in this encounter Visit Diagnoses Not on filedocumented in this encounter Care Teams Food And Nutrition Services Assistant Relationship Specialty Start Date End Date Cherelle Valdez, IRONWORKER WIRE FENCE ERECTOR-POSTAL SERVICE CLERK [address] [place] [address] PCP - General Obstetrics & Gynecology 03/15/24 documented as of this encounter
[2024-10-30 16:12] LABS: Hematocrit 32.4 % (36.0-48.0); Hemoglobin 10.6 g/dL (12.0-16.0); Immature Granulocytes Abs Auto 0.02 10^3/uL (0.00-0.03); Immature Granulocytes Pct Auto 0.2 % (0.0-0.5); Lymphocytes Absolute Auto 1.8 10^3/uL (1.2-3.8); Mean Corpuscular HGB Conc 32.7 g/dL (29.9-35.2); Mean Corpuscular Hemoglobin 24.8 pg (26.7-34.0); Mean Corpuscular Volume 75.7 fL (81.0-99.0); Platelet Count 201 10^3/uL (150-450); Red Blood Count 4.28 10^6/uL (4.20-5.40); White Blood Count 8.7 10^3/uL (4.0-11.0)
[2024-10-30 16:31] LABS: Cannabinoid Screen Urine NEGATIVE (NEGATIVE); Methamphetamines Screen Urine NEGATIVE (NEGATIVE); Tricyclic Antidepressant Urine NEGATIVE (NEGATIVE)
[2024-11-01 08:09] LABS: Rubella Antibodies, IgG 1.00 index (Immune >0.99)
[2024-11-01 14:08] LABS: Rapid Plasma Reagin, Quant Non Reactive titer (NonRea<1:1)
== END 2024-10-30 15:11 | disposition home or self-care (01) ==
PROVIDERS: Visit Provider Obstetrics & Gynecology
DX: Z34.01 Encounter for supervision of normal first pregnancy, first trimester (principal); N92.6 Irregular menstruation, unspecified
CPT/HCPCS: 36415; 80307; 83036; 85025; 86592; 86762; 86803; 86850; 86900; 86901; 87086; 87340; 87389

== ENCOUNTER 2024-12-25 12:32 | Outpatient (REF) | payer OTHER, SELFPAY ==
--- OUTSIDE RECORDS SUMMARY | 2024-12-25 10:30 | XMS_ITS | Encounter Summary ---
Demographics Address [address] [place] [address] Home Phone Mobile Phone Preferred Language en Marital Status Unmarried Latter-Day Affiliation Unknown Race Other Race Ethnic Group Unknown Author Organization [facility] Address [address] [place] [address] Care Team Providers Care Clinical Business Manager Name Role Phone Unavailable Primary Care Provider Unavailabl e Reason for Visit * ReasonCommentsRoutine VisitWell Women VisitSTI Screening Encounter Details DateTypeDepartmentCare Team (Latest Contact Info)Ecuiivbfmap89/21/2025 10:30 AM EDTRoutine [facility] [address] [place] [phone] Ann Justin PA [address] [place] [address] Second trimester ([facility]); 18 weeks gestation of ([facility]); Well woman exam with routine gynecological exam; Exposure to STD; Screening, , for anatomic survey ([facility]); Vaginal discharge Social History Tobacco UseTypesPacks/DayYears UsedDateSmoking Tobacco: Never Assessed Estimated Date of AnbruuleSajwsbzkCjs23/19/2026Based on last menstrual period of 08/16/2024Sex and Gender InformationValueDate RecordedSex Assigned at BirthNot on fileLegal FrgXqdeab57/22/2025 10:34 AM EDTGender IdentityNot on fileSexual OrientationNot on filedocumented as of this encounter Last Filed Vital Signs Vital SignReadingTime TakenCommentsBlood Ffrldjtj441/6012/25/2024 10:56 AM EDT Pulse--Temperature--Respiratory Rate--Oxygen Saturation--Inhaled Oxygen Concentration--Fomdmz88.9 kg (154 lb)12/25/2024 10:56 AM EDTHeight--Body Mass Index27.2808 2:43 PM EDTdocumented in this encounter Progress Notes * DAVID Yanez - 12/25/2024 10:30 AM EDT Reason for Appointment: Patient ID: Kamini Batista is a 19 y.o. female who presents for Routine Visit, Well Women Visit, and STI Screening Patient presents today for Return OB appointment. MEDICATIONS Current Outpatient Medications Medication Instructions pyridoxine (VITAMIN B-6) 25 mg, Oral, Every 8 hours ALLERGIES No Known Allergies PROBLEMS Active Ambulatory Problems Diagnosis Date Noted No Active Ambulatory Problems Resolved Ambulatory Problems Diagnosis Date Noted No Resolved Ambulatory Problems No Additional Past Medical History HISTORY PAST MEDICAL HISTORY SOCIAL HISTORY History reviewed. No pertinent past medical history. Social History Tobacco Use Smoking status: Not on file Smokeless tobacco: Not on file Substance Use Topics Alcohol use: Not on file Drug use: Not on file FAMILY HISTORY No family history on file. SURGICAL HISTORY Past Surgical History: Procedure Laterality Date D&C FIRST TRIMESTER / TX INCOMPLETE / MISSED / SEPTIC / INDUCED REVIEW OF SYSTEMS Review of Systems: Review of Systems Constitutional: Negative. HENT: Negative. Eyes: Negative. Respiratory: Negative. Cardiovascular: Negative. Gastrointestinal: Negative. Genitourinary: Negative. Musculoskeletal: Negative. Skin: Negative. Neurological: Negative. All other systems reviewed and are negative. Hematological: Negative. Endocrine: Negative. Allergic/Immunologic: Negative. OBJECTIVE Objective: Physical Exam Constitutional: Appearance: Normal appearance. She is normal weight. HENT: Head: Normocephalic. Cardiovascular: Rate and Rhythm: Normal rate. Pulses: Normal pulses. Pulmonary: Effort: Pulmonary effort is normal. Breath sounds: Normal breath sounds. Abdominal: Palpations: Abdomen is soft. Musculoskeletal: General: Normal range of motion. Neurological: General: No focal deficit present. Mental Status: She is alert and oriented to person, place, and time. Psychiatric: Mood and Affect: Mood normal. Behavior: Behavior normal. Thought Content: Thought content normal. Judgment: Judgment normal. Vitals and nursing note reviewed. Vitals: Estimated body mass index is 27.28 kg/m?? as calculated from the following: Height as of 10/25/24: 5' 3 . Weight as of this encounter: 154 lb. BP: 110/60 Patient's last menstrual period was 08/16/2024. Assessment/Plan ICD-10-CM 1. Second trimester ([facility]) Z34.92 POCT urinalysis dipstick manually resulted Alpha fetoprotein, maternal Alpha fetoprotein, maternal 2. 18 weeks gestation of ([facility]) Z3A.18 POCT urinalysis dipstick manually resulted Alpha fetoprotein, maternal Alpha fetoprotein, maternal 3. Well woman exam with routine gynecological exam Z01.419 Pap Smear 4. Exposure to STD Z20.2 CHLAMYDIA TRACHOMATIS (GENITO/STI) Neisseria gonorrhea DNA probe, direct 5. Screening, , for anatomic survey ([facility]) Z36.89 US OB 14+ weeks anatomy scan US OB 14+ weeks anatomy scan 6. Vaginal discharge N89.8 SURESWAB(R) ADVANCED VAGINITIS PLUS, TMA Return OB/Annual Exam: Patient presents today for a annual exam/routine obstetrics appointment. Patient is currently 00h0dgxwzrwyf. Patient states she is doing well but has complaints of nausea in the morning. Pap and cultures was obtained without difficulty and patient was given orders for anatomy scan and msAFP to be obtained. Orders Placed This Encounter Procedures US OB 14+ weeks anatomy scan CHLAMYDIA TRACHOMATIS (GENITO/STI) Neisseria gonorrhea DNA probe, direct Alpha fetoprotein, maternal POCT urinalysis dipstick manually resulted Follow Up: Patient is to schedule annual exam for next year and return to office in 4 weeks for OB appointment. Documented by DAVID Yanez on behalf of: DAVID Yanez documented in this encounter Plan of Treatment DateTypeDepartmentCare Team (Latest Contact Info)Rebgbjythmn66/04/2025 10:30 AM ESTAncillary Procedure [facility] [address] [place] [phone] 01/24/2025 11:40 AM ESTRoutine [facility] [address] [place] [phone] Bernardo Montes, [address] [place] [address] NameTypePriorityAssociated DiagnosesOrder ScheduleSURESWAB(R) [facility]ANCED VAGINITIS PLUS, TMAPathology and CytologyRoutine Vaginal discharge Ordered: 12/25/2024HLAMYDIA TRACHOMATIS (GENITO/STI)LabRoutine Exposure to STD Ordered: 12/25/2024Neisseria gonorrhea DNA probe, directLabRoutine Exposure to STD Ordered: 12/25/2024Pap SmearPathology and CytologyRoutine Well woman exam with routine gynecological exam Ordered: 12/25/2024US OB 14+ weeks anatomy scanImagingRoutine Screening, , for anatomic survey ([facility]) Expected: 12/25/2024, Expires: 03/27/2025lpha fetoprotein, maternalLabRoutine Second trimester ([facility]) 18 weeks gestation of ([facility]) Expected: 12/25/2024 (Approximate), Expires: 01/25/2025documented as of this encounter Procedures Procedure NamePriorityDate/TimeAssociated DiagnosisCommentsPOCT URINALYSIS JOVXOFBVZmyfmxu12/21/2025 11:06 AM EDT Second trimester ([facility]) 18 weeks gestation of ([facility]) documented in this encounter Results * (ABNORMAL) POCT urinalysis dipstick manually resulted (12/25/2024 11:06 AM EDT)ComponentValueRef RangeTest MethodAnalysis TimePerformed AtPathologist SignatureColor, UAYellowClarity, UAClearGlucose, UANegativeNegative - 2000(110) ++++ mg/dLBilirubin, UANegativeNegative - 4(70) +++ mg/dLKetones, UA NegativeNegative - 160(16) ++++ mg/dLSpec Grav, UA1.0251 - 1.03Blood, UA NegativeNegative - 50 Cj/mcLpH, UA6.05 - 9Protein, UAPositiveNegative - 2000(20) ++++ mg/dLUrobilinogen, UA1.00.2 - 12 mg/dLLeukocytes, UANegative Negative - 500+++ Sol/mcLNitrite, UANegativeNegative - PositiveSpecimen (Source)Anatomical Location / LateralityCollection Method / VolumeCollection TimeReceived ZmaaRdtio29/21/2025 11:06 AM EDT Narrative Authorizing ProviderResult TypeResult StatusAmy Nhan PAPOINT OF CARE TEST ENTER/EDIT ORDERABLESFinal Result documented in this encounter Visit Diagnoses Diagnosis Second trimester ([facility]) state, incidental 18 weeks gestation of ([facility]) Well woman exam with routine gynecological exam Routine gynecological examination Exposure to STD Screening, , for anatomic survey ([facility]) Encounter for anatomic survey Vaginal discharge Leukorrhea, not specified as infective documented in this encounter
--- OUTSIDE RECORDS SUMMARY | 2024-12-25 12:36 | XMS_ITS | Encounter Summary ---
Demographics Address [address] [address] Home Phone Mobile Phone Preferred Language en Marital Status Unmarried Roman Catholic Affiliation Unknown Race Other Race Ethnic Group Unknown Author Organization [facility] Address [address] [facility] [place] [address] Care Team Providers Care Mail Handler Equipment Operator Name Role Phone Unavailable Primary Care Provider Unavailabl e Encounter Details DateTypeDepartmentCare Team (Latest Contact Info)Abcwcvufbom87/21/2025amboo flowsheet [facility] [address] [place] [address] Ann Justin PA [address] [place], [facility] Social History Tobacco UseTypesPacks/DayYears UsedDateSmoking Tobacco: Never Assessed Estimated Date of TstnchqtPoaecoisBvb86/19/2026Based on last menstrual period of 08/16/2024Sex and Gender InformationValueDate RecordedSex Assigned at BirthNot on fileLegal DnyOmayzk34/22/2025 10:34 AM EDTGender IdentityNot on fileSexual OrientationNot on filedocumented as of this encounter Plan of Treatment DateTypeDepartmentCare Team (Latest Contact Info)Wwuaprmeflw70/04/2025 10:30 AM ESTAncillary Procedure [facility] [address] [place] [address] [place] [place] [address] 01/24/2025 11:40 AM ESTRoutine [facility] [address] [place] [address] Bernardo Montes DO [address] [place], [facility] documented as of this encounter Visit Diagnoses Not on filedocumented in this encounter
--- OUTSIDE RECORDS SUMMARY | 2024-12-25 12:36 | XMS_ITS | Patient Health Record ---
Author Organization Coleman dickens MD, [facility] Address [address] [place] [address] Care Team Providers Care Shirt Finisher Name Role Phone Earnest Wallace DO Primary Care Provider John Cee MD, Brianda Unavailable [phone] Social History Tobacco Use: Social History Observation Description Date Details (start date - stop date) Never Smoker NA - NA Social History Social HistorySocial InfoQuestionAnswerNotesSmoking:Patient is anonsmoker Additional DetailsCategorySocial InfoOptionsDetailsSocial HistoryOccupation: StudentExercise:yesPE at schoolCaffeine:yesSoda and Chocolate occasionally Section Notes: 4-6 glasses of fluid daily ( water, milk & juice) 4-6 glasses of fluid daily ( water, milk & juice) 4-6 glasses of fluid daily ( water, milk & juice) 4 glasses of fluid daily 4-6 glasses of fluid daily ( water, milk & juice) Problems Problem Type SNOMED Code ICD Code Onset Dates Problem Status W/U Status Risk Notes Problem Heart murmur (598037539) CARDIAC MURMURS NEC (785.2) Activeconfirmed Plan Of Treatment Pending Test Test Name Order Date Echo Full with Color/ Doppler 10/23/2009 Echo Full with Color/ Doppler 02/23/2012 Insurance Providers Payer Name Payer Address Payer Phone Subscriber Number Group Number Insured Name Patient Relationship to Insured Coverage Start Date Coverage End Date [employer]/ [address] [address] [place]ICAL [place] [address] [id number] [id number] Kamini Lyons Self - patient is the insured 5 Medical (General) History Medical History History ICD Code Cardiac murmur since 1 year of age
--- OUTSIDE RECORDS SUMMARY | 2024-12-25 12:36 | XMS_ITS | Clinical Summary ---
Author Organization [facility] [employer] [facility] tem Address [id number] [place] [address] Care Team Providers Care Strapping Machine Operator Name Role Phone Cherelle Valdez Davion QUALITY CONTROL ENGINEER-ASSEMBLY MANAGER Primary Care Provider + Allergies No known active allergies Medications MedicationSigDispense QuantityRefillsLast FilledStart DateEnd DateStatus vit no.670-xejq-fshvy acid ( VITAMIN) 27 mg iron- 800 mcg tablet Indications:Lactating motherTake 1 tablet by mouth in the morning. 90 tablet 5Active Active Problems CommentsYes No known active problems Encounters DateTypeDepartmentCare CighGeyalhkdnbf33/17/2025 9:14 PM EDT - 11/21/2024 11:29 PM EDTEmergency [facility] [address] [place] [address] Teresa Barkley DO Hyperemesis gravidarum (Primary Dx) Discharge Disposition: Home11/21/2024Travelfrom Last 3 Months Immunizations ImmunizationAdministration DatesNext LfbKBU3704/25/2023(Deferred: - pt immune)RSV, bivalent, protein subunit RSVpreF, diluent reconstituted, 0.5 mL, PF01/25/2024 Tdap104/25/2023(Deferred: - received in ),01/09/20242828Bthrfyolh85/19/2024 () Family History Medical HistoryRelationNameCommentsNo Known ProblemsFatherDiabetesMotherDiabetes Paternal GrandmotherDiabetesPaternal UncleRelationNameStatusCommentsFather DeceasedMotherAlivePaternal GrandmotherPaternal UncleAlive Social History Tobacco UseTypesPacks/DayYears UsedDateSmoking Tobacco: NeverSmokeless Tobacco: Never Tobacco Cessation:Counseling Given: Not Answered Alcohol UseStandard Drinks/WeekCommentsNot Currently0 (1 standard drink = 0.6 oz pure alcohol)[facility] UtilitiesAnswerDate RecordedIn the past 12 months has the electric, gas, oil, or water company threatened to shut off services in your home?No02/22/2024Overall Financial Resource Strain (CARDIA)AnswerDate Recorded How hard is it for you to pay for the very basics like food, housing, medical care, and heating?Not very hard02/21/2024RAPARE - TransportationAnswerDate RecordedIn the past 12 months, has lack of transportation kept you from medical appointments or from getting medications?No02/22/2024In the past 12 months, has lack of transportation kept you from meetings, work, or from getting things needed for daily living?No02/22/2024Edinburgh Depression ScaleAnswer Date RecordedEdinburgh Depression Scale Anxjx319The thought of harming myself has occurred to me.Never04/05/2024Housing InstabilityAnswerDate RecordedAre you worried or concerned that in the next two months you may not have stable housing that you own, rent or stay in as a part of a household?No 02/22/2024Hunger ScreeningAnswerDate RecordedWithin the past 12 months we worried whether our food would run out before we got money to buy more.Never True11/21/2024Within the past 12 months the food we bought just didn't last and we didn't have money to get more.Never True11/21/2024CommentsYesSex and Gender InformationValueDate RecordedSex Assigned at RwhqwWfaqfy60/27/2024 11:00 AM EDTLegal EcwRvwxma59/27/2024 10:58 AM EDTGender TqvmqwngUpenxr31/27/2024 11:00 AM EDTSexual OrientationNot on file Last Filed Vital Signs Vital SignReadingTime TakenCommentsBlood Wrnwgjdh850/7709 11:26 PM EDT Elkty020711/21/2024 11:26 PM DWQYvawnkzahka50.9 ??C (98.5 ??F)11/21/2024 9:19 PM EDTRespiratory Ttfo903211/21/2024 11:26 PM EDTOxygen Eiathntmbu167%11/21/2024 11:26 PM EDTInhaled Oxygen Concentration--Hohgxa02.1 kg (148 lb)11/21/2024 9:19 PM PNZXezgsb713.5 cm (5' 2 )04/05/2024 2:39 PM ESTBody Mass Index27.0704/05/2024 2:39 PM EST Plan of Treatment Health MaintenanceDue DateLast DoneCommentsAdult BMI Follow Up Plan07/27/2021 Chlamydia Ahbdsrhae82/ap Smear07/27/2024Influenza Vaccine 11/05/2024Depression Cdweuggvh91/dult BMI Dqpkmewnf44/17/2026 11/21/2024Tobacco Lfusqqvhj15DTaP,Tdap and Td Vaccines (2 - Td or Tdap) Medical Devices Not on file Procedures Procedure NamePriorityDate/TimeAssociated DiagnosisCommentsPOCT NURSING URINE MACROSCOPIC RBUtqmjdt48/17/2025 9:53 PM EDT ER EXTRA ANJTBBUMG48/17/2025 9:51 PM EDT BASIC METABOLIC UATSVEELP83/17/2025 9:51 PM EDT CBC WITH AUTO WHIXZBDOHTQZMJOW98/17/2025 9:51 PM EDT CHLAMYDIA/GC BY PCR ZEYNEP KSCFHujynlt02/08/2024 from Last 3 Months or Most Recently Relevant to Health Maintenance Results * (ABNORMAL) POCT Nursing Urine Macroscopic UA (11/21/2024 9:53 PM EDT)Component ValueRef RangeTest MethodAnalysis TimePerformed AtPathologist SignaturePOC Urine Specific [place]>=1.030(A)1.010, 1.015, 1.020, 1.1412411/21/2024 9:56 PM [facility] Urine Leukocyte EsteraseTrace(A) Nxomofrt10/17/2025 9:56 [facility] Urine UuautuaPxwhnjgpIoivbciq36/17/2025 9:56 PM [facility] Urine pH6.55.0, 6.0, 6.5, 7.0, 7.5, 8.0, 8.5, 5. 9:56 PM [facility] Urine Cickhzy51 mg/dL(A)Negative 11/21/2024 9:56 PM [facility] Urine Glucose LoyzypgjFjrhirtq09/17/2025 9:56 PM [facility] Urine Malxnfb13 mg/dL(A)Tamorwfk31/17/2025 9:56 PM [facility] Urine Urobilinogen1.0 E.U./dL11/21/2024 9:56 PM EDT [facility] Urine BilirubinSmall(A)Negative 11/21/2024 9:56 PM [facility] Urine Blood/HGB UonbrdfqLcgwelss19/17/2025 9:56 PM [facility] Specimen (Source)Anatomical Location / LateralityCollection Method / Volume Collection TimeReceived KloqHcuuu07/17/2025 9:53 PM EDT11/21/2024 9:56 PM EDT Narrative Authorizing ProviderResult TypeResult StatusTeresa Barkley DOPOINT OF CARE TEST ORDERABLESFinal ResultPerforming OrganizationAddressCity/State/ZIP CodePhone Number [facility] [address] [place] [address], * Extra Urine (11/21/2024 9:51 PM EDT)ComponentValueRef RangeTest MethodAnalysis TimePerformed AtPathologist SignatureExtra TubeAuto Uegzgdts33/17/2025 11:01 PM [facility]imen (Source)Anatomical Location / LateralityCollection Method / VolumeCollection TimeReceived TimeUrineUrine specimen collection, clean catch / Rfrrleb4311/21/2024 9:51 PM EDT11/21/2024 10:16 PM EDT Narrative Authorizing ProviderResult TypeResult StatusAlisa Davion Barkley DOLENNY ORDERABLES Final ResultPerforming OrganizationAddressCity/State/ZIP CodePhone Number [facility] [address] [place] [address], * (ABNORMAL) CBC auto differential (11/21/2024 9:51 PM EDT)ComponentValueRef RangeTest MethodAnalysis TimePerformed AtPathologist SignatureWBC6.04 - 11 x10E9/L11/21/2024 10:27 PM EDCL[facility]PITALRBC Count4.59 3.8 - 5.2 X10E12/L11/21/2024 10:27 PM [facility] Vrhtuvkrwb94.1(L)11.7 - 15.5 g/dL11/21/2024 10:27 PM [facility]ITALHematocrit33.9(L)35 - 47 %11/21/2024 10:27 PM [facility]MCV74(L)80 - 100 fL11/21/2024 10:27 PM [facility]MCH24.3(L)27 - 34 pg11/21/2024 10:27 PM [facility]ITALMCHC32.932 - 36 g/dL11/21/2024 10:27 PM EDCLINT[facility]OSPITALRDW15.8(H)11.5 - 15 %11/21/2024 10:27 PM [facility]ITALPlatelet Dwraa351506 - 450 X10E9/L11/21/2024 10:27 PM EDCLINTON [facility]OSPITALMPV10.57 - 12 fL11/21/2024 10:27 PM EDT [facility]ITALNeutrophils %74.8%11/21/2024 10:27 PM EDT [facility]ymphocytes %18.2%11/21/2024 10:27 PM EDT [facility]ITALMonocytes %6.1%11/21/2024 10:27 PM EDT [facility] HOSPITALEosinophils %0.7%11/21/2024 10:27 PM EDT [facility]Basophils %0.2%11/21/2024 10:27 PM EDT [facility]ITALNeutrophils Absolute (A)4.51.5 - 6.6 10*3/uL11/21/2024 10:27 PM EDCLINT[facility]OSPITALLymphocytes Absolute1.11.0 - 3.5 10*3/11/21/2024 10:27 PM EDTPCRYSTAL CLINIC ORTHOPEDIC CENTERMonocytes Absolute0.40.0 - 0.9 10*3/11/21/2024 10:27 PM EDCLINTON [facility]ORIAL [facility]OSPITALEosinophils Absolute0.00.0 - 0.4 10*3/uL11/21/2024 10:27 PM EDTPCRYSTAL CLINIC ORTHOPEDIC CENTERBasophils Absolute0.00.0 - 0.2 10*3/11/21/2024 10:27 PM EDCLINTON MEMORIAL HOSPITALDifferential TypeAUTOMATED QSBTJOMRUPOF16/17/2025 10:27 PM [facility]ITALpecimen (Source)Anatomical Location / LateralityCollection Method / VolumeCollection TimeReceived TimeBloodVenous blood / Nbdiasb7511/21/2024 9:51 PM EDT11/21/2024 10:16 PM EDT Narrative Authorizing ProviderResult TypeResult StatusAlisa Davion Barkley DOL BLOOD ORDERABLESFinal ResultPerforming OrganizationAddressCity/State/ZIP CodePhone Number [facility] [address] [facility] [place] [address], * (ABNORMAL) Basic Metabolic Panel (11/21/2024 9:51 PM EDT)ComponentValueRef RangeTest MethodAnalysis TimePerformed AtPathologist EjkwhlfywEREGYM767477 - 146 mmol/L11/21/2024 10:33 PM [facility]ITALPOTASSIUM 3.2(L)3.5 - 5.0 mmol/L11/21/2024 10:33 PM [facility]ITALCHLORIDE10598 - 109 mmol/L11/21/2024 10:33 PM [facility]PITALCARBON RPRCTYG3442 - 32 mmol/L11/21/2024 10:33 PM EDT [facility]ITALANION GAP85 - 15 mmol/L11/21/2024 10:33 PM [facility]ITALBLOOD UREA PIRTDPBD83 - 23 mg/dL 11/21/2024 10:33 PM [facility]ITALCREATININE0.510.40 - 1.00 mg/dL11/21/2024 10:33 PM [facility]ITALComment: METHOD TRACEABLE TO IDMS PGKYKZHIFITCFON614(H)65 - 99 mg/dL11/21/2024 10:33 PM [facility]PITALCALCIUM8.88.5 - 10.5 mg/dL11/21/2024 10:33 PM [facility]OSPITALEGFR Non-Race Dependent>90>=60 ml/min/1.73sq.m011/21/2024 10:33 PM [facility] Comment: eGFR not reported due to non-numeric value for Creatinine. Reported eGFR is based on the CKD-EPI 2020 equation that does not use a race coefficient. Specimen (Source)Anatomical Location / LateralityCollection Method / Volume Collection TimeReceived TimeBloodVenous blood / Dqeqcye7311/21/2024 9:51 PM EDT 11/21/2024 10:16 PM EDT Narrative Authorizing ProviderResult TypeResult StatusAlisa Davion CAGLE BLOOD ORDERABLESFinal ResultPerforming OrganizationAddressCity/State/ZIP CodePhone Number [facility] [address] [place] [address], * Chlamydia/GC by PCR Zeynep Swab (07/13/2023)ComponentValueRef RangeTest Method Analysis TimePerformed AtPathologist SignatureChlamydia Dna(Pcr)Negative MANUALLY TRANSCRIBED RESULTSGonorrhoeae Dna(Pcr)NegativeMANUALLY TRANSCRIBED RESULTS Narrative Authorizing ProviderResult TypeResult StatusCorie Ritu Baca MDMICROBIOLOGY - GENERAL ORDERABLESFinal ResultPerforming OrganizationAddressCity/State/ZIP Code Phone Number MANUALLY TRANSCRIBED RESULTS from Last 3 Months or Most Recently Relevant to Health Maintenance Insurance * Guarantor: Kamini ColesAccount TypeRelation to PatientDate of BirthPhoneBilling AddressPersonal/DmmlivSacp71/23/2004 [address] [place] [address] Advance Directives * Full Code (Latest Code Status on File) Date ActivatedDate TgavefbkzrkCdzpzxor66/17/2024 11:24 AM02/23/2024 1:21 PM Care Teams Team MemberRelationshipSpecialtyStart DateEnd Date Cherelle Valdez APRN-ASSEMBLY MANAGER [address] [place] [address] PCP - GeneralObstetrics & Gynecology03/15/24
--- OUTSIDE RECORDS SUMMARY | 2024-12-25 12:36 | XMS_ITS | Clinical Summary ---
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 Name Role Phone Unavailable Primary Care Provider Unavailabl e Allergies No known active allergies Medications MedicationSigDispense QuantityRefillsLast FilledStart DateEnd DateStatus pyridoxine (Vitamin B-6) 25 MG tablet Indications:Nausea and vomiting during ([facility])Take 1 tablet (25 mg) by mouth every 8 (eight) hours 90 tablet 515Active iron polysaccharides (ProFe) 391.3 (180 Fe) MG capsule Indications:Low hemoglobinTake 1 capsule (391.3 mg) by mouth Daily 30 capsule 608/709677/Expired Encounters DateTypeDepartmentCare KxkyDuuucqerpur17/21/2025 10:30 AM EDTRoutine [place] [address] Ann Justin PA Second trimester ([facility]); 18 weeks gestation of ([facility]); Well woman exam with routine gynecological exam; Exposure to STD; Screening, , for anatomic survey ([facility]); Vaginal bzccewgaa07/21/2025amboo [place] [address] Ann Justin PA 11/26/2024 9:20 [place] [address] Bernardo Montes DO Nausea and vomiting during ([facility]) (Primary Dx); Second trimester ([facility]); 14 weeks gestation of ([facility])5Bamboo flowsheet [facility] [address] [place] [address] Bernardo Montes, 11/12/2024bstract [facility] [address] [place] [address] Bernardo Montes, 11/06/2024bstract [facility] [address] [place] [address] Jessica Kenyon MA 10/31/2024Telephone [facility] [address] [place] [address] Bernardo Montes, 10/30/2024linisync Result Encounter [facility] External Department Unsolicited Bernardo Montes DO 10/25/2024 2:30 PM EDTInitial [facility] [address] [place] [address] [place]: 29m4r5710/25/2024 2:00 PM EDTAncillary Procedure [facility] [address] [place] [address] Missed menses; Positive urine test ([facility])10/25/2024bstract [facility] [address] [place] [address] Bernardo Montes, 10/25/2024bstract [facility] [address] [place] [address] Bernardo Montes DO from Last 3 Months Social History Tobacco UseTypesPacks/DayYears UsedDateSmoking Tobacco: Never Assessed Estimated Date of LbpcmpgqXnavslckQit90/19/2026Based on last menstrual period of 08/16/2024Sex and Gender InformationValueDate RecordedSex Assigned at BirthNot on fileLegal AtxGzacwn60/22/2025 10:34 AM EDTGender IdentityNot on fileSexual OrientationNot on file Last Filed Vital Signs Vital SignReadingTime TakenCommentsBlood Zgbygixb426/6012/25/2024 10:56 AM EDT Pulse--Temperature--Respiratory Rate--Oxygen Saturation--Inhaled Oxygen Concentration--Lytnyp66.9 kg (154 lb)12/25/2024 10:56 AM IVKRfgbhg237 cm (5' 3 ) 10/25/2024 2:43 PM EDTBody Mass Index27.28010/25/2024 2:43 PM EDT Plan of Treatment DateTypeDepartmentCare Team (Latest Contact Info)Tlnspirbigp46/04/2025 10:30 AM ESTAncillary Procedure BRITTANY KR[facility] [address] [place] [address] [place] [address] 01/24/2025 11:40 AM ESTRoutine [facility] [address] [place] [address] [place] [address] Bernardo Montes DO [address] [place] [address] Procedures Procedure NamePriorityDate/TimeAssociated DiagnosisCommentsPOCT URINALYSIS PCMXRROCUhomhrs50/21/2025 11:06 AM EDT Second trimester ([facility]) 18 weeks gestation of ([facility]) HBSAG YWHULAOiawimf39/26/2025 3:43 PM EDT RAPID PLASMA REAGIN, SHVJMGpqdvyu39/26/2025 3:43 PM EDT HCV ANTIBODY RFX TO QUANT WPTZdlwpwa62/26/2025 3:43 PM EDT ALL RUBELLA IGG KISvpagsz37/26/2025 3:43 PM EDT HIV AB/P24 AG WITH IVAZGXLfzrcyk07/26/2025 3:43 PM EDT ALL TYPE AND WYNPKGVautwnq07/26/2025 3:43 PM EDT MLR HEMOGLOBIN L6TYoiuacx60/26/2025 3:43 PM EDT ALL CBC WITH AUTO OPRARvsrnlp62/26/2025 3:43 PM EDT BOX CXXAIthlwba64/26/2025 3:43 PM EDT TBH DRUG SCREEN RAPID (URINE)Fqisvnk7710/30/2024 3:32 PM EDT POCT URINALYSIS OVVSKERBMnphbix31/21/2025 3:12 PM EDT Missed menses POCT , CCYOGPdqoyhb78/21/2025 3:12 PM EDT Missed menses US OB OETINWXECACDQzqkxuy03/21/2025 2:42 PM EDT Missed menses Positive urine test ([facility]) from Last 3 Months Results * (ABNORMAL) POCT urinalysis dipstick manually resulted (12/25/2024 11:06 AM EDT) Only the most recent of2 resultswithin the time period is included. ComponentValueRef RangeTest MethodAnalysis TimePerformed AtPathologist Signature Color, UAYellowClarity, UAClearGlucose, UANegativeNegative - 2000(110) ++++ mg/dLBilirubin, UANegativeNegative - 4(70) +++ mg/dLKetones, UANegativeNegative - 160(16) ++++ mg/dLSpec Grav, UA1.0251 - 1.03Blood, UANegativeNegative - 50 Cj/mcLpH, UA6.05 - 9Protein, UAPositiveNegative - 2000(20) ++++ mg/dL Urobilinogen, UA1.00.2 - 12 mg/dLLeukocytes, UANegativeNegative - 500+++ Sol/mcL Nitrite, UANegativeNegative - PositiveSpecimen (Source)Anatomical Location / LateralityCollection Method / VolumeCollection TimeReceived VvvzJbnzk49/21/2025 11:06 AM EDT Narrative Authorizing ProviderResult TypeResult StatusAmy Nhan PAPOINT OF CARE TEST ENTER/EDIT ORDERABLESFinal Result * BOX TEST (10/30/2024 3:43 PM EDT)ComponentValueRef RangeTest MethodAnalysis TimePerformed AtPathologist SignatureBOX TEST SENT OZZNPQNOTOLOKS4VWIRKEFADZD2 10/30/2024TBHSpecimen (Source)Anatomical Location / LateralityCollection Method / VolumeCollection TimeReceived Time10/30/2024 3:43 PM EDT10/30/2024 3:50 PM EDT Narrative CLINISYNC - 10/30/2024 3:54 PM EDT Authorizing ProviderResult TypeResult StatusCorey Simon DOLAB BLOOD ORDERABLES Final ResultPerforming OrganizationAddressCity/State/ZIP CodePhone Number [facility] * HBSAG SCREEN (10/30/2024 3:43 PM EDT)ComponentValueRef RangeTest Method Analysis TimePerformed AtPathologist SignatureHBSAG SCREENNegativeNegativeTBH Comment: Performed at: ??CB - [facility] [address] ??[id number] Emergency Room Technician: Maco Correa PhD, Phone: ??[phone] Specimen (Source)Anatomical Location / LateralityCollection Method / Volume Collection TimeReceived Time10/30/2024 3:43 PM EDT10/30/2024 3:50 PM EDT Narrative CLINISYNC - 11/01/2024 2:08 PM EDT Authorizing ProviderResult TypeResult StatusCorey Simon DOLAB BLOOD ORDERABLES Final ResultPerforming OrganizationAddressCity/State/ZIP CodePhone Number [facility] * RAPID PLASMA REAGIN, QUANT (10/30/2024 3:43 PM EDT)ComponentValueRef RangeTest MethodAnalysis TimePerformed AtPathologist SignatureRAPID PLASMA REAGIN, QUANT Non ReactiveNonRea<1:1 titerTBHComment: Please Note: This test does not meet current guidelines for screening and diagnosis of syphilis. This test is intended for following treatment response in patients being treated for syphilis infection. To screen for syphilis infection, a reflex cascade that includes both RPR and a treponema-specific assay should be utilized, such as Treponema pallidum (Syphilis) Screening [place] (443771) or Rapid Plasma Reagin (RPR) Test With Reflex to Quantitative RPR and Confirmatory Treponema pallidum Antibodies (440824). Performed at: ??[address] ??[id number] Emergency Room Technician: Maco Correa PhD, Phone: ??[phone] Specimen (Source)Anatomical Location / LateralityCollection Method / Volume Collection TimeReceived Time10/30/2024 3:43 PM EDT10/30/2024 3:50 PM EDT Narrative CLINISYAR - 11/01/2024 2:08 PM EDT Authorizing ProviderResult TypeResult StatusCorey Simon DOLAB BLOOD ORDERABLES Final ResultPerforming OrganizationAddressCity/State/ZIP CodePhone Number [facility]USIS[facility]NC [facility] * HIV AB/P24 AG WITH REFLEX (10/30/2024 3:43 PM EDT)ComponentValueRef RangeTest MethodAnalysis TimePerformed AtPathologist SignatureHIV AB/P24 AG SCREENNon ReactiveNon ReactiveTBHComment: HIV-1/HIV-2 antibodies and HIV-1 p24 antigen were NOT detected. There is no laboratory evidence of HIV infection. HIV Negative Performed at: ??[address] ??[id number] Emergency Room Technician: Maco Correa PhD, Phone: ??[phone] Specimen (Source)Anatomical Location / LateralityCollection Method / Volume Collection TimeReceived Time10/30/2024 3:43 PM EDT10/30/2024 3:50 PM EDT Narrative CLINISYNC - 11/01/2024 6:09 AM EDT Authorizing ProviderResult TypeResult StatusCorey Simon DOLAB BLOOD ORDERABLES Final ResultPerforming OrganizationAddressCity/State/ZIP CodePhone Number [facility]NC [facility] * HCV ANTIBODY RFX TO QUANT PCR (10/30/2024 3:43 PM EDT)ComponentValueRef Range Test MethodAnalysis TimePerformed AtPathologist SignatureHCV ABNon ReactiveNon ReactiveTBHINTERPRETATION:Comment.TBHComment: Not infected with HCV unless early or acute infection is suspected (which may be delayed in an immunocompromised individual), or other evidence exists to indicate HCV infection. Performed at: ??CB - [facility] [address] ??[id number] Emergency Room Technician: Maco Correa PhD, Phone: ??[phone] Specimen (Source)Anatomical Location / LateralityCollection Method / Volume Collection TimeReceived Time10/30/2024 3:43 PM EDT10/30/2024 3:50 PM EDT Narrative CLINISYNC - 11/01/2024 8:09 AM EDT Authorizing ProviderResult TypeResult StatusCorey Simon DOLAB BLOOD ORDERABLES Final ResultPerforming OrganizationAddressCity/State/ZIP CodePhone Number [facility] * MLR HEMOGLOBIN A1C (10/30/2024 3:43 PM EDT)ComponentValueRef RangeTest Method Analysis TimePerformed AtPathologist SignatureGLYCOHEMOGLOBIN A1C5.24.5 - 6.2 %TBHComment: ADA RECOMMENDED LIMIT 4.0 - 6.0 ADA THERAPEUTIC TARGET < 7.0 ACTION SUGGESTED > 7.0 ESTIMATED AVERAGE RYISSPG485tz/dLTBHSpecimen (Source)Anatomical Location / LateralityCollection Method / VolumeCollection TimeReceived Time10/30/2024 3:43 PM EDT10/30/2024 3:50 PM EDT Narrative CLINISYNC - 10/30/2024 4:42 PM EDT Authorizing ProviderResult TypeResult StatusCorey Simon DOCLINISYNCFinal Result Performing OrganizationAddressCity/State/ZIP CodePhone Number [facility] * ALL TYPE AND SCREEN (10/30/2024 3:43 PM EDT)ComponentValueRef RangeTest Method Analysis TimePerformed AtPathologist SignatureBLOOD TYPEO PositiveTBHANTIBODY SCREENNEGATIVETBHSpecimen (Source)Anatomical Location / LateralityCollection Method / VolumeCollection TimeReceived Time10/30/2024 3:43 PM EDT10/30/2024 3:50 PM EDT Narrative CLINISYNC - 10/30/2024 5:49 PM EDT [facility] , ?? Authorizing ProviderResult TypeResult StatusCorey Simon DOCLINISYNCFinal Result Performing OrganizationAddressCity/State/ZIP CodePhone Number [facility] * ALL RUBELLA IGG AB (10/30/2024 3:43 PM EDT)ComponentValueRef RangeTest Method Analysis TimePerformed AtPathologist SignatureRUBELLA ANTIBODIES, IGG1.00 Immune >0.99 indexTBHComment: Non-immune <0.90 ?Equivocal ??0.90 - 0.99 Immune >0.99 Performed at: ?? - [facility] [address] ??[id number] Emergency Room Technician: Maco Correa PhD, Phone: ??[phone] Specimen (Source)Anatomical Location / LateralityCollection Method / Volume Collection TimeReceived Time10/30/2024 3:43 PM EDT10/30/2024 3:50 PM EDT Narrative CLINISYNC - 11/01/2024 8:09 AM EDT Authorizing ProviderResult TypeResult StatusCorey Simon DOCLINISYNCFinal Result Performing OrganizationAddressty/State/[facility] CodePhone Number [facility] * (ABNORMAL) ALL CBC WITH AUTO DIFF (10/30/2024 3:43 PM EDT)ComponentValueRef RangeTest MethodAnalysis TimePerformed AtPathologist SignatureTBH WBC8.74.0 - 11.0 10 3/uLTBHTBH RBC4.284.20 - 5.40 10 6/uLTBHTBH HGB10.6(L)12.0 - 16.0 g/dL TBHTBH HCT32.4(L)36.0 - 48.0 %TBHTBH MCV75.7(L)81.0 - 99.0 fLTBHTBH MCH24.8(L) 26.7 - 34.0 pgTBHTBH MCHC32.729.9 - 35.2 g/dLTBHTBH RDW15.9(H)11.0 - 15.0 %TBH TBH HVU810448 - 450 10 3/uLTBHTBH MPV12.19.5 - 13.5 fLTBHNEUTROPHILS PERCENT AUTO74.443.0 - 75.0 %TBHLYMPHOCYTES PERCENT AUTO20.620.5 - 60.0 %TBHMONOCYTES PERCENT AUTO3.91.7 - 12.0 %TBHTBH EO %0.7(L)0.9 - 7.0 %TBHBASOPHILS PERCENT AUTO0.20.2 - 2.0 %TBHIMMATURE GRANULOCYTES PCT AUTO0.20.0 - 0.5 %TBH NEUTROPHILS ABSOLUTE AUTO6.51.4 - 6.5 10 3/uLTBHLYMPHOCYTES ABSOLUTE AUTO1.8 1.2 - 3.8 10 3/uLTBHMONOCYTES ABSOLUTE AUTO0.30.3 - 0.8 10 3/uLTBHTBH EO #0.1 0.0 - 0.7 10 3/uLTBHBASOPHILS ABSOLUTE AUTO0.00.0 - 0.1 10 3/uLTBHIMMATURE GRANULOCYTES ABS AUTO0.020.00 - 0.03 10 3/uLTBHSpecimen (Source)Anatomical Location / LateralityCollection Method / VolumeCollection TimeReceived Time 10/30/2024 3:43 PM EDT10/30/2024 3:50 PM EDT Narrative CLINISYNC - 10/30/2024 4:18 PM EDT Authorizing ProviderResult TypeResult StatusCorey Simon DOCLINISYNCFinal Result Performing OrganizationAddressCity/State/ZIP CodePhone Number [facility]IN[facility]YNC TB * TB DRUG SCREEN RAPID (URINE) (10/30/2024 3:32 PM EDT)ComponentValueRef Range Test MethodAnalysis TimePerformed AtPathologist SignatureCANNABINOID SCREEN URINENEGATIVENEGATIVETBHPHENCYCLIDINE SCREEN URINENEGATIVENEGATIVETBHCOCAINE SCREEN URINENEGATIVENEGATIVETBHMETHAMPHETAMINES SCREEN URINENEGATIVENEGATIVE TBHOPIATE SCREEN URINENEGATIVENEGATIVETBHAMPHETAMINE SCREEN URINENEGATIVE NEGATIVETBHBENZODIAZEPINES SCREEN URINENEGATIVENEGATIVETBHTRICYCLIC ANTIDEPRESSANT URINENEGATIVENEGATIVETBHMETHADONE SCREEN URINENEGATIVENEGATIVE TBHBARBITURATES SCREEN URINENEGATIVENEGATIVETBHOXYCODONE SCREEN URINENEGATIVE NEGATIVETBHBUPRENORPHINE SCREEN URINENEGATIVENEGATIVETBHComment: DRUG CLASS TEST SYSTEM CUT-OFF CONCENTRATIONS ARE FOLLOWS: AMP (Amphetamine): 500 ng/mL BAR (Barbiturates): 200 ng/mL BZO (Benzodiazepines): 150 ng/mL BUP (Buprenorphine): 10 ng/mL [place] (Cocaine): 150 ng/mL mAMP (Methamphetamine): 500 ng/mL MTD (Methadone): 200 ng/mL OPI (Opiates): 100 ng/mL OXY (Oxycodone): 100 ng/mL PCP (Phencyclidine): 25 ng/mL THC (Cannabinoids): 50 ng/mL TCA (Trycyclic Antidepressants): 300 ng/mL Specimen (Source)Anatomical Location / LateralityCollection Method / Volume Collection TimeReceived Time10/30/2024 3:32 PM EDT10/30/2024 3:51 PM EDT Narrative DARIUSISYNC - 10/30/2024 4:31 PM EDT Authorizing ProviderResult TypeResult StatusCorey Simon DOCLINISYNCFinal Result Performing OrganizationAddressCity/State/ZIP CodePhone Number [facility] * POCT , urine manually resulted (10/25/2024 3:12 PM EDT)ComponentValue Ref RangeTest MethodAnalysis TimePerformed AtPathologist SignaturePreg Test, UrPositiveNegativeSpecimen (Source)Anatomical Location / LateralityCollection Method / VolumeCollection TimeReceived SyfbTrpnu15/21/2025 3:12 PM EDT Narrative Authorizing ProviderResult TypeResult StatusCorey Simon DOPOINT OF CARE TEST ENTER/EDIT ORDERABLESFinal Result * US OB transvaginal (10/25/2024 2:42 PM EDT)Anatomical RegionLateralityModality BodyUltrasoundSpecimen (Source)Anatomical Location / LateralityCollection Method / VolumeCollection TimeReceived Time10/28/2024 8:22 AM EDT Narrative 10/28/2024 8:22 AM EDT EXAM: US OB TRANSVAGINAL HISTORY: ??Dating. COMPARISON: ?? None available. TECHNIQUE: Two-dimensional transvaginal grayscale ultrasound imaging of the pelvis was performed. Color Doppler evaluation of the ovaries was also performed. FINDINGS: The uterus demonstrates a normal homogeneous echotexture. ??The cervix measures 4.0 cm in length and [...] measurements correlate with a gestational age of ??9 weeks 5 days (+/- 6 days). ??CORONA by today's ultrasound is 05/25/2025. 2. Normal color Doppler evaluation of the bilateral ovaries. Interpreted by: Electronically signed by PRATEEK BAUGH II, ?? , PHD at 28-Oct-2024 08:20:23 AM [facility] Procedure Note Prateek Baugh MD - [...] signed by PRATEEK BAUGH II, MD, PHD [id number] 08:20:23 AM [facility] Authorizing ProviderResult TypeResult StatusCorey Simon MORROWMG OB US PROCEDURES Final Result from Last 3 Months Insurance * Guarantor: Kamini BatistaAccount TypeRelation to PatientDate of BirthPhone Billing AddressPersonal/NwkwxcAwjh28/23/2004 [facility] [address] [place] [phone]
[2024-12-28 16:09] LABS: Age Gdln ACOG Testing Note (.); IGP, rfx Aptima HPV ASCU Note (.)
== END 2024-12-25 12:33 | disposition home or self-care (01) ==
LOC: LAB 12:32
PROVIDERS: Visit Provider Physician Assistant
DX: Z01.419 Encounter for gynecological examination (general) (routine) without abnormal findings (principal)
CPT/HCPCS: 88175

== ENCOUNTER 2025-01-20 22:02 | Observation (INO) | payer OTHER, SELFPAY ==
--- OUTSIDE RECORDS SUMMARY | 2022-07-23 08:14 | XMS_ITS | Continuity of Care Document ---
Author Organization [facility] Address [address] [place] [phone] Phone Care Team Providers Care Asphalt Roller Operator Name Role Phone Marlena Nguyễn DO Unavailable Unavailable Advance Directives Directive Yes / No Effective Date File Name No Information Encounters Encounter Description Practice Location Reason(s) For Visit Diagnoses Date Provider [facility], [address] [place] [address], [id number], [place] tel:[phone] [facility] No Information 2022 Gopi Mendiola. [address] [place], [place], [id number], [place]. tel:[phone] Family History Family Member Type Diagnosis Age At Onset No Information Payers Payer name Insurance type Covered alliance party ID Authoriza tion(s) No Information Social History Type Description Quantity Date Captured Comments Sex Female Smoking Status No Information Chief Complaint And Reason For Visit No Information History Of Present Illness Encounter Date Complaint History Of Prese nt Illness No Information Instructions Date Instruction Additional Infor mation No Information Assessments Type Assessment Date No Information
--- OUTSIDE RECORDS SUMMARY | 2024-12-18 04:15 | XMS_ITS | Continuity of Care Document ---
Author Organization [facility] Address [address] [place] [address] Phone Care Team Providers Care Agricultural Research Technician Name Role Phone Araceli Patel Unavailable Unavailab le Allergies, Adverse Reactions, Alerts Substance Reaction Status Criticality doxycycline Skin rash(moderate)Itching(moderate)Hives (moderate) Active No Information Medications Medication Instructions Dosage Effective Dates (start - stop) Status Comments No Drug Therapy Prescribed Advance Directives Directive Yes / No Effective Date File Name No Information Encounters Encounter Description Practice Location Reason(s) For Visit Diagnoses Date Provider [facility], [address] [place] [address], [id number], tel:[phone] Formerly [facility], 1928–1983 No Information 5 Shahida Charles. [address] [place] [address], [id number], [place]. tel:[phone] [facility], [address] [place] [address], [id number], [place] tel:[phone] Formerly [facility], 1928–1983 No Information 4 Agustina Bartholomew. [address] [place], [place], [id number], [place]. tel:[phone] [facility], [address] [place] [address], [id number], [place] tel:[phone] Formerly [facility], 1928–1983 Preventive exam (chief complaint)Sc reenings. (chief complaint)ch ronic conditions (chief complaint) Body mass index (BMI) 26.0-26.9, adultEncounter for screening for depressionWell woman exam (no gynecological exam)Dietary counselingExercise counselingEncounter for immunizationImpacted cerumen of right earGeneralized anxiety disorderMajor depressive disorder, recurrent, unspecifiedBirth control counseling 4 Agustina Bartholomew. [address] [place], [place], [id number], [place]. tel:[phone] [facility], [address] [place] [address], [id number], [place] tel:[phone] Formerly [facility], [facility]–1983 chronic conditions (chief complaint) Body mass index (BMI) 25.0-25.9, adultMajor depressive disorder, recurrent, unspecifiedGeneralized anxiety disorderAllergic drug rashChlamydia infection 4 Augstina Bartholomew. [address] [place], [place], [id number], [place]. tel:[phone] [facility], [address] [place] [address], [id number], [place] tel:[phone] Formerly [facility], [facility] depression. (chief complaint)Co ntraceptive. (chief complaint) Body mass index (BMI) 25.0-25.9, adultRecurrent major depressive episodesPoor concentrationFatigue, unspecified typeRoutine screening for STI (sexually transmitted infection)Counseling for control, oral contraceptivesEncounter to establish care with new doctorDietary counselingExercise counseling 4 Agustina Bartholomew. [address] [place], [place], [id number], [place]. tel:[phone] [facility], [address] [place] [address], [id number], [place] tel:[phone] [facility], [facility] No Information 4 Agustina Bartholomew. [address] [place], [place], [id number], [place]. tel:[phone] [facility], [address] [place] [address], [id number], [place] tel:[phone] [facility]ly [facility], [facility] depression (chief complaint) Depression with anxiety Jun-2 1 Deepaligustavo Zaria. [address] [place], [address], [place]. tel:[phone] [facility], [address] [place] [address], [id number], [place] tel:[phone] [facility], [facility] anxiety (chief complaint) Body mass index (BMI) 23.0-23.9, adultDepression with anxiety Jun-0 1 Deepaligustavo Zaria. [address] [place], [address], [place]. tel:[phone] [facility], [address] [place] [address], [id number], [place] tel:[phone] [facility], [facility]–1983 No Information 0 1 Deepaligretchenher Enciso. [address] [place], [address], [place]. tel:[phone] [facility], [address] [place] [address], [id number], [place] tel:[phone] [facility], [facility]–1983 Anxiety (chief complaint) Body mass index (BMI) 23.0-23.9, adultEncounter for screening for depressionDepression with anxiety May- 1 Deepaligustavo Zaria. [address] [place], [address], [place]. tel:[phone] [facility], [address] [place] [address], [id number], [place] tel:[phone] [facility]ly [facility], [facility]–1983 Left ear pain. (chief complaint)Me d review. (chief complaint) BMI pediatric, 5th percentile to less than 85% for ageURI, acute 1 Gilberto Enciso. [address] [place], [address], [place]. tel:[phone] [facility], [address] [place] [address], [id number], [place] tel:[phone] [facility] No Information June. [address] [place] [address], [address], [place]. tel:[phone] [facility], [address] [place] [address], [id number], [place] tel:[phone] Formerly [facility], [facility]–1983 control (chief complaint) control counseling 0 Gilberto Enciso. [address] Replaced By [facility], [place], [address], [place]. tel:[phone] Family History Family Member Type Diagnosis Age At Onset Mother Problem (finding) depression Immunizations Vaccine Date Status Comments HPV9 administered Source: Other R egistry Influenza LAIV4 (FluMist) administered So urce: Other Registry HPV9 administered Source: Other R egistry Tdap (adol/adult) administered Source: Ot her Registry MenACWY-D (Menactra) administered Source: Other Registry Influenza LAIV4 (FluMist) administered So urce: Other Registry Influenza IIV3 (Inject) administered Sour ce: Other Registry Hep A (ped/adol) administered Source: Ot er Registry MMR administered Source: Other R egistry Varicella (Varivax) administered Source: Other Registry MMR administered Source: Other R egistry Hep A (ped/adol) administered Source: Oth er Registry IPV (polio) administered Source: Other R egistry DTaP (Daptacel) administered Source: Othe r Registry DTaP (pediatric) administered Source: Oth er Registry MMR administered Source: Other R [...] B (ped/adol) administered Source: Ot er Registry Payers Payer name Insurance type Covered constitution party ID Authorcarla kemal(s) [facility] [id number] Social History Type Description Quantity Date Captured [...] , guidance, and counseling completed Referral Ordered: Referrals: Mental Health Counselor [id number] Referred To: Neuropsych testing- Tru Madison, PhD Ordered: Referrals: Psychologist. Neuropsych testing- Tru Madison, PhD. Evaluate and treat [id number] Ordered: Referrals: Mental Health Counselor. Evaluate and treat ordered History Of Present Illness Encounter Date Complaint History Of Prese nt Illness Chronic Conditions *See Chronic Conditions Template chronic conditions *See Chronic Conditions HPI Preventive exam The patient stat es using [...] urinary urgency, vaginal discharge and vaginal itching. Screenings. annual: 09/13/23pa p/hpv: screening at age [...] safe at home. 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 She was told to call again if she gets state insurance. 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 Going ok. She has also had feelings of dreading going to work and feeling burnt out. 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 Family history of mental health disease [...] CV-19 yesterday; did not disclose at front edger. Rapid was negative but 2nd is not back. Asked her to leave office since we didn't have her results. Step mom left. control Would like to ta lk about control would like the pill. Medications Administered Medication Instructions Dosage Effective Dates (start - stop) Status Comments No Drug Therapy Prescribed Instructions Date Instruction Additional Infor matalessandro Irrigated successfully. Related to Impacted cerumen of [...] Related to Major depressive disorder, recurrent, unspecified Aerobic exercise enc ouraged, 30min 4-5 days a week. (150min/week total) for maintenance. Break up this time into smaller portions. Incorporate exercise into daily activities and encouraged including friends and family. Related to Exercise counseling Discussed diet/lifes tyle changes that may help with weight loss and overall health. Discussed benefits of increasing fruits and vegetables to 3-5 servings daily, and whole grains while limiting processed foods, sugar, and salt. Make sure to drink at least 64 oz of water with limited juice, alcohol, or soda. Related to Dietary counseling Annual advice; Vital signs, risk factors, [...] vaccinations Relat ed to Encounter for immunization Standardized adult d epression screening tool completed Related to Encounter for screening for depression Dietary management e ducation, guidance, and counseling Related to Body mass index [BMI] 26.0-26.9, adult Previous positive ch lamydia screening, completed course [...] needed. Changing referral for neuropsychic testing to [facility].Previously referred to therapy, in the phone [...] look for a therapist using the website [employer].If you are feeling actively suicidal, go to the ED!The suicide hotline number is 497-920-2571Wnu can also text HELP to 755-388.Follow up 1 month. Related to Recurrent major [...] screening for depression for child or adolescent Dietary management e ducation, guidance, and counseling Related to Body mass index [BMI] 23.0-23.9, adult Drinking plenty of f luids. Water, juice, [...] 1/2 lemon mix. Related to URI, acute Dietary management e ducation, guidance, and counseling Related to Body mass index [BMI] pediatric, 5th percentile to less than 85th percentile for age Exercises education, guidance, and counseling Related to Body mass index [BMI] pediatric, 5th percentile to less than 85th percentile for age Assessments Type Assessment Date No Information
--- OUTSIDE RECORDS SUMMARY | 2025-01-08 10:30 | XMS_ITS | Encounter Summary ---
Demographics Address [address] [place] [address] Home Phone Mobile Phone Preferred Language en Marital Status Unmarried Anabaptism Affiliation Unknown Race Other Race Ethnic Group Unknown Author Organization [facility] Address [address] [facility] [place] [address] Care Team Providers Care [address] Fre[employer] Name Role Phone Unavailable Primary Care Provider Unavailabl e Encounter Details DateTypeDepartmentCare Team (Latest Contact Info)Yresexzjcme03/04/2025 10:30 AM ESTAncillary Procedure [facility] [address] [place] [address] Social History Tobacco UseTypesPacks/DayYears UsedDateSmoking Tobacco: Never AssessedPHQ-2 AnswerDate RecordedPatient Health Questionnaire-2 Eujsh16203/10/2024 Estimated Date of FvwesvvzYmbmzhiqNbl43/19/2026Based on last menstrual period of 08/16/2024Sex and Gender InformationValueDate RecordedSex Assigned at BirthNot on fileLegal GylEquryr41/22/2025 10:34 AM EDTGender IdentityNot on fileSexual OrientationNot on filedocumented as of this encounter Functional Status * Over the past 2 weeks, how often have you been bothered by any of the following problems?QuestionAnswerDate of AssessmentAuthorLittle interest or pleasure in doing thingsNot at all01/08/2025 10:19 AM ESTChapmAnn bettencourt, EDUCATIONAL PSYCHOLOGIST Feeling down, depressed, or hopelessNot at all01/08/2025 10:19 AM Ann Norton LPNPatient Health Questionnaire-2 Frans90103/10/2024 10:19 AM LinkpmAnn bettencourt EDUCATIONAL PSYCHOLOGIST documented as of this encounter Plan of Treatment DateTypeDepartmentCare Team (Latest Contact Info)Trzhwzxpihy17/20/2025 11:40 AM ESTRoutine [facility] [address] [place] [address] Bernardo Montes, DO [address] [place] [address] documented as of this encounter Procedures Procedure NamePriorityDate/TimeAssociated DiagnosisCommentsUS OB 14+ WEEKS ANATOMY JXKLVthtxme70/04/2025 11:15 AM EST Screening, , for anatomic survey ([facility]) documented in this encounter Results * US OB 14+ weeks anatomy scan (01/08/2025 11:15 AM EST)Anatomical Region LateralityModalityBodyUltrasoundSpecimen (Source)Anatomical Location / LateralityCollection Method / VolumeCollection TimeReceived Time01/08/2025 1:41 PM EST Impressions 01/08/2025 3:14 PM EST 1. Single, live intrauterine , current sonographic age of 20 weeks and 4 days, with an estimated date of delivery of May 24, 2025. 2. ??Suboptimal visualization of cardiac and outflow tracts. * ??Estimated Weight (g) by Percentile is based upon an accurate estimated age based onlast menstrual period. ?? TRANSCRIBED BY: ? ELECTRONICALLY SIGNED BY: Jefry Blackwood MD Narrative 01/08/2025 3:14 PM EST FINDINGS: A single, live intrauterine is present with normal cardiac rate of ??142 beats per minute. Normal activity and amniotic fluid volume. Amniotic ?Morphology is grossly normal with suboptimal visualization of the cardiac four-chamber view and outflow tracts. The cervix is long and closed, 3.5cm. ??The placenta is posterior, not associated with the cervical os. ??The currentsonographic age is ??20 weeks and 4 ??days, based on the following measurements: BPD ? 4.8 cm (20 weeks, 3 days) Head Circumference ? 18.1cm 20( weeks, 4 days) Abdominal Circumference ? 15.7cm ( 20weeks, 3 days) Femur Length ?3.3cm ( 20weeks, 3 days) Presentation ? Placenta ? Posterior ?? Weight (g) by Percentile ?? 39.3% * These measurements result in an estimated date of delivery of May 24, 2025. ?? The current estimated weight is ??365 ??grams ( ??pound, 13 ??ounces). ?? Procedure Note Jefry Blackwood MD - 01/08/2025 FINDINGS: A single, live intrauterine is present with normal cardiacrate of 142 beats per minute. Normal activity and amniotic fluidvolume. Amniotic Morphology is grossly normal with suboptimalvisualization of the cardiac four-chamber view and outflow tracts. Thecervix is long and closed, 3.5cm. The placenta is posterior, notassociated with the cervical os. The current sonographic age is 20 weeksand 4 days, based on the following measurements: BPD 4.8 cm (20 weeks, 3 days) Head Circumference 18.1cm 20( weeks, 4 days) Abdominal Circumference 15.7cm ( 20weeks, 3 days) Femur Length 3.3cm ( 20weeks, 3 days) Presentation Placenta Posterior Weight (g) by Percentile 39.3% * These measurements result in an estimated date of delivery of May. The current estimated weight is 365 grams ( pound, 13ounces). IMPRESSION: 1. Single, live intrauterine , current sonographic age of 20weeks and 4 days, with an estimated date of delivery of May 24, 2025. 2. Suboptimal visualization of cardiac and outflow tracts. * Estimated Weight (g) by Percentile is based upon an accurateestimated age based on last menstrual period. TRANSCRIBED BY: ELECTRONICALLY SIGNED BY: Jefry Blackwood MD Authorizing ProviderResult TypeResult StatusAmy [facility] US PROCEDURES Final Result documented in this encounter Visit Diagnoses Not on filedocumented in this encounter
--- OUTSIDE RECORDS SUMMARY | 2025-01-20 22:13 | XMS_ITS | Clinical Summary ---
Demographics Address [address] [place] [address] Home Phone Mobile Phone Preferred Language en Marital Status Unmarried Pentecostal Affiliation Unknown Race Other Race Ethnic Group Unknown Author Organization [facility] Address [address] [place] [address] Care Team Providers Care Taping Foreman Name Role Phone Unavailable Primary Care Provider Unavailabl e Allergies No known active allergies Medications MedicationSigDispense QuantityRefillsLast FilledStart DateEnd DateStatus pyridoxine (Vitamin B-6) 25 MG tablet Indications:Nausea and vomiting during ([facility])Take 1 tablet (25 mg) by mouth every 8 (eight) hours 90 tablet 5Active Encounters DateTypeDepartmentCare VjvhRhyvtdxlyoh59/05/2025Orders Only BRITTANY KRUSE [address] [place] [address] [place] [address] Meena Bowen LPN 01/08/2025 10:30 AM ESTAncillary Procedure NOM Tawny KRUSE [address] [place] [address] [place] [address] 01/08/2025Patient Outreach [facility] [address] [place] [address] Ann Beaulieu LPN 01/07/2025bstract [facility] [address] [place] [address] Ann Beaulieu LPN 12/25/2024 10:30 AM EDTRoutine [facility] Tawny KRUSE [address] [place] [address] Ann Justin PA Second trimester ([facility]); 18 weeks gestation of ([facility]); Well woman exam with routine gynecological exam; Exposure to STD; Screening, , for anatomic survey ([facility]); Vaginal /21/2025Clinisync Result Encounter [facility] External Department Unsolicited Ann Justin PA 12/25/2024External Result Encounter [facility]OMS External Department Unsolicited Ann Justin PA 12/25/2024amboo flowsheet [facility] [address] [facility] [place] [address] Ann Justin PA 11/26/2024 9:20 AM EDTRoutine [facility] [address] [place] [address] Bernardo Montes DO Nausea and vomiting during ([facility]) (Primary Dx); Second trimester ([facility]); 14 weeks gestation of ([facility])11/26/2024amboo flowsheet [facility] [address] [place] [address] Bernardo Montes, 11/12/2024bstract [facility] [address] [facility] [place] [address] Bernardo Montes, 5Abstract [facility] [address] [place] [address] Jessica Kenyon MA 10/31/2024Telephone [facility] [address] [place] [address] Bernardo Montes, 5Clinisync Result Encounter NOMS External Department Unsolicited Bernardo Montes, 10/25/2024 2:30 PM EDTInitial [facility] [address] [place] [address] GA: 41p8p5210/25/2024 2:00 PM EDTAncillary Procedure [facility] [address] [place] [address] Missed menses; Positive urine test ([facility])10/25/2024bstract [facility] [address] [place] [address] Bernardo Montes DO 10/25/2024bstract [facility] [address] [place] [address] Bernardo Montes DO from Last 3 Months Social History Tobacco UseTypesPacks/DayYears UsedDateSmoking Tobacco: Never AssessedPHQ-2 AnswerDate RecordedPatient Health Questionnaire-2 Jywae72103/10/2024 Estimated Date of ZvirfgktDjklowqfHfx03/19/2026ased on last menstrual period of 08/16/2024Sex and Gender InformationValueDate RecordedSex Assigned at BirthNot on fileLegal MkhElmexj31/22/2025 10:34 AM EDTGender IdentityNot on fileSexual OrientationNot on file Last Filed Vital Signs Vital SignReadingTime TakenCommentsBlood Ofgaqxah396/6012/25/2024 10:56 AM EDT Pulse--Temperature--Respiratory Rate--Oxygen Saturation--Inhaled Oxygen Concentration--Vhezdn69.9 kg (154 lb)12/25/2024 10:56 AM XMXGwxzga018 cm (5' 3 ) 10/25/2024 2:43 PM EDTBody Mass Index27.2808 2:43 PM EDT Plan of Treatment DateTypeDepartmentCare Team (Latest Contact Info)Oeghyepoxfr70/20/2025 11:40 AM ESTRoutine [facility] Tawny KRUSE [address] [place] [address] Bernardo Montes DO [address] [place] [address] Procedures Procedure NamePriorityDate/TimeAssociated DiagnosisCommentsUS OB 14+ WEEKS ANATOMY RGJGVvjnmby17/04/2025 11:15 AM EST Screening, , for anatomic survey ([facility]) CULTURE, URINE, NMGUBDPVfcgkdn64/21/2025 4:07 PM EDT Missed menses RECURRENT VAGINITIS (HTRX)Swfrquh8312/25/2024 11:30 AM EDT POCT URINALYSIS EHVGMLWJCgiteiu95/21/2025 11:06 AM EDT Second trimester ([facility]) 18 weeks gestation of ([facility]) IGP,APTIMA HPV,AGE IVKIXzxxmwg82/21/2025 10:40 AM EDT PAP TEST, AYFZBBCNTcautys55/21/2025 12:00 AM EDTHBSAG TPHOLAJuizsrv85/26/2025 3:43 PM EDT RAPID PLASMA REAGIN, NCZWXQjlnoan14/26/2025 3:43 PM EDT HCV ANTIBODY RFX TO QUANT IOFRitawrd52/26/2025 3:43 PM EDT ALL RUBELLA IGG BSZwyrqqz99/26/2025 3:43 PM EDT HIV AB/P24 AG WITH DIVVDOZwfktkg21/26/2025 3:43 PM EDT ALL TYPE AND RLZKRMWixbzvk47/26/2025 3:43 PM EDT MLR HEMOGLOBIN O0YNxqrkqt94/26/2025 3:43 PM EDT ALL CBC WITH AUTO OFTAJswtfro77/26/2025 3:43 PM EDT BOX BDEVVhjcuyp30/26/2025 3:43 PM EDT [facility] DRUG SCREEN RAPID (URINE)Glkrmyw9310/30/2024 3:32 PM EDT POCT URINALYSIS RCEGXLXDArdpgpu36/21/2025 3:12 PM EDT Missed menses POCT , ZVVEOKslttln88/21/2025 3:12 PM EDT Missed menses US OB CRVYONIDHACWRrqfzpm60/21/2025 2:42 PM EDT Missed menses Positive urine test ([facility]) from Last 3 Months Results * US OB 14+ weeks anatomy [...] Jefry Blackwood MD Authorizing ProviderResult TypeResult StatusAmy [facility] US PROCEDURES Final Result * Urine culture (12/25/2024 4:07 PM EDT)Specimen (Source)Anatomical Location / LateralityCollection Method / VolumeCollection TimeReceived TimeUrineUrine specimen obtained by clean catch procedure / Unknown Narrative Authorizing ProviderResult TypeResult StatusCorey [facility] MICROBIOLOGY - GENERAL ORDERABLESFinal ResultPerforming OrganizationAddressCity/State/ZIP Code Phone Number EXTERNAL LAB * RECURRENT VAGINITIS (HTRX) (12/25/2024 11:30 AM EDT)ComponentValueRef Range Test MethodAnalysis TimePerformed AtPathologist SignatureATOPOBIUM VAGINAE0 19.961 - 24.689 ppm12/26/2024 6:46 AM EDTHealthTrackRx at LabPortATOPOBIUM VAGINAENot Zyeznkjc19.961 - 24.689 ppm12/26/2024 6:46 AM EDTHealthTrackRx at LabPortBVAB 2,3 (BACTERIAL VAGINOSIS ASSOCIATED BACTERIA 2, 3); MOBILUNCUS SPP 019.961 - 24.689 ppm12/26/2024 6:46 AM EDTHealthTrackRx at LabPortBVAB 2,3 (BACTERIAL VAGINOSIS ASSOCIATED BACTERIA 2, 3); MOBILUNCUS SPPNot Detected 19.961 - 24.689 ppm12/26/2024 6:46 AM EDTHealthTrackRx at LabPortCANDIDA ALBICANS, PARAPSILOSIS, UAYJEGNXZH343.000 - 30.347 ppm12/26/2024 6:46 AM EDT [facility] at LabPortCANDIDA ALBICANS, PARAPSILOSIS, TROPICALISNot Detected 23.000 - 30.347 ppm12/26/2024 6:46 AM EDTHealthTrackRx at LabPortCANDIDA KDRTTWFB108.000 - 31.618 ppm12/26/2024 6:46 AM EDTHealthTrackRx at LabPort ORI GLABRATANot Opacowef79.000 - 31.618 ppm12/26/2024 6:46 AM EDT [facility] at LabPortCANDIDA AMFRBK416.000 - 30.873 ppm12/26/2024 6:46 AM EDTHealthTrackRx at LabPortCANDIDA KRUSEINot Ceaabkyr75.000 - 30.873 ppm 12/26/2024 6:46 AM EDTHealthTrackRx at LabPortCHLAMYDIA GZFTLSRHESF323.000 - 31.586 ppm12/26/2024 6:46 AM EDTHealthTrackRx at [facility] CenterCHLAM[facility]DIA TRACHOMATIS Not Itdvdzps44.000 - 31.586 ppm12/26/2024 6:46 AM EDTHealthTrackRx at LabPort GARDNERELLA BZRAXCHQY300.961 - 24.689 ppm12/26/2024 6:46 AM EDTHealthTrackRx at [facility] CenterGARDNERELLA VAGINALISNot Mbarsddg00.961 - 24.689 ppm12/26/2024 6:46 AM EDTHealthTrackRx at [facility] Medical CenterMEGASPHAERA (TYPES 1, 2)019.961 - 24.689 ppm 12/26/2024 6:46 AM EDTHealthTrackRx at [facility] CenterMEGASPHAERA (TYPES 1, 2)Not Ezlbgsxh25.961 - 24.689 ppm12/26/2024 6:46 AM EDTHealthTrackRx at [facility] NEISSERIA QWSDUJRHBNP396.000 - 32.587 ppm12/26/2024 6:46 AM EDTHealthTrackRx at [facility] CenterNEISSERIA GONORRHOEAENot Lieipobz86.000 - 32.587 ppm12/26/2024 6:46 AM EDTHealthTrackRx at [facility] HospitalTRICHOMONAS UVBRIRUUM273.000 - 31.995 ppm 12/26/2024 6:46 AM EDTHealthTrackRx at [facility] CenterTRICHOMONAS VAGINALISNot Axotroru95.000 - 31.995 ppm12/26/2024 6:46 AM EDTHealthTrackRx at [facility] MYCOPLASMA IREJADUHKZ272.961 - 24.689 ppm12/26/2024 6:46 AM EDTHealthTrackRx at [facility] CenterMYCOPLASMA GENITALIUMNot Zqcienum27.961 - 24.689 ppm12/26/2024 6:46 AM EDTHealthTrackRx at LabPortSpecimen (Source)Anatomical Location / LateralityCollection Method / VolumeCollection TimeReceived TimeTissue 12/25/2024 11:30 AM EDT1 1:27 AM EDT Narrative Authorizing ProviderResult TypeResult StatusAmy Nhan [facility] BLOOD ORDERABLES Final ResultPerforming OrganizationAddressCity/State/ZIP CodePhone Number [facility] [address] [address] * (ABNORMAL) POCT urinalysis dipstick manually resulted (12/25/2024 11:06 AM EDT) Only the most recent of2 resultswithin the time period is included. ComponentValueRef RangeTest MethodAnalysis TimePerformed AtPathologist Signature Color, UAYellowClarity, UAClearGlucose, UANegativeNegative - 1999(110) ++++ mg/dLBilirubin, UANegativeNegative - 4(70) +++ mg/dLKetones, UANegativeNegative - 160(16) ++++ mg/dLSpec Grav, UA1.0251 - 1.03Blood, UANegativeNegative - 50 Cj/mcLpH, UA6.05 - 9Protein, UAPositiveNegative - 2000(20) ++++ mg/dL Urobilinogen, UA1.00.2 - 12 mg/dLLeukocytes, UANegativeNegative - 500+++ Sol/mcL Nitrite, UANegativeNegative - PositiveSpecimen (Source)Anatomical Location / LateralityCollection Method / VolumeCollection TimeReceived PimbQzxhm52/21/2025 11:06 AM EDT Narrative Authorizing ProviderResult TypeResult StatusAmy Nhan [facility] [place] OF CARE TEST ENTER/EDIT ORDERABLESFinal Result * IGP,APTIMA HPV,AGE GDLN (12/25/2024 10:40 AM EDT)ComponentValueRef RangeTest MethodAnalysis TimePerformed AtPathologist SignatureAGE GDLN ACOG TESTINGNote. TBHComment: ?? TESTS ? RESULT ??FLAG ??UNITS ?REF RANGE ??LAB ?? Clinician Provided Cytology Information ?? Source.............Endocervix ?? Other.............. ?? No. of containers..01 ThinPrep Vial Age Algo ACOG Payal... ??21-29 ? 01 ?FLAG LEGEND: ?L-Low Normal,H-High Normal,LL-Alert Low,HH-Alert High <-Panic Low,>-Panic High,A-Abnormal,AA-Critical Abnormal Performed at: 01 =G ?[facility] ?? [address] [place] ??[address] ?? Paty Vogel MD, IGP, RFX APTIMA HPV ASCUNote.TBHComment: ?? TESTS ? RESULT ??FLAG ??UNITS ?REF RANGE ??LAB DIAGNOSIS: ?02 ?? NEGATIVE FOR INTRAEPITHELIAL LESION OR MALIGNANCY. Specimen adequacy: ?02 ?? Satisfactory for evaluation. ??Endocervical and/or squamous metaplastic ?? cells (endocervical component) are present. Performed by: ? 02 ?? Shady Crocker Rn Bsn (ASCP) . ? 02 Note: ? Note ?02 ?? The Pap smear is a screening test designed to aid in the ?? detection of premalignant and malignant conditions of the ?? uterine cervix. ??It is not a diagnostic procedure and ?? should not be used as the sole means of detecting cervical ?? cancer. ??Both false-positive and false-negative reports do ?? occur. Test Methodology: ? Note ?02 ?? This liquid based ThinPrep(R) pap test was interpreted ?? using the Gratafy(R) Genius(TM) Cervical Algorithm whole ?? slide imaging system. . ? 02 ?? The HPV DNA reflex criteria were not met with this specimen ?? result therefore, no HPV testing was performed. ?FLAG LEGEND: ?L-Low Normal,H-High Normal,LL-Alert Low,HH-Alert High <-Panic Low,>-Panic High,A-Abnormal,AA-Critical Abnormal Performed at: 02 WB ?[facility] ?? [address] [place], [place] ??[address] ?? Paty Vogel MD, Performed at: ??=G - [facility] [address] [place], [place] ??[id number] Mirror Silverer: Paty Vogel MD, Phone: ??[phone] Performed at: ??WB - [facility] [address] ??[id number] Mirror Silverer: Paty Vogel MD, Phone: ??[phone] Specimen (Source)Anatomical Location / LateralityCollection Method / Volume Collection TimeReceived Time12/25/2024 10:40 AM EDT1 12:44 PM EDT Narrative [facility] - 12/28/2024 4:09 PM EDT SPATULA-ALONE ENDOCERVIX Authorizing ProviderResult TypeResult StatusAmy Darwin PALAB BLOOD ORDERABLES Final ResultPerforming OrganizationAddressCity/State/ZIP CodePhone Number [facility] * PAP TEST, EXTERNAL (12/25/2024 12:00 AM EDT) Narrative Authorizing ProviderResult TypeResult StatusFazio Nurse [facility] ObLAB CYTOLOGY ORDERABLESFinal ResultPerforming OrganizationAddressCity/State/ZIP CodePhone Number EXTERNAL LAB * BOX TEST (10/30/2024 3:43 PM EDT)ComponentValueRef RangeTest MethodAnalysis TimePerformed AtPathologist SignatureBOX TEST SENT OIYUWVDZXULBLN2XTAEVQQTKLG2 10/30/2024TBHSpecimen (Source)Anatomical Location / LateralityCollection Method / VolumeCollection TimeReceived Time10/30/2024 3:43 PM EDT10/30/2024 3:50 PM EDT Narrative [facility] - 10/30/2024 3:54 PM EDT Authorizing ProviderResult TypeResult StatusCorey Simon DOLAB BLOOD ORDERABLES Final ResultPerforming OrganizationAddressCity/State/ZIP CodePhone Number [facility] * HBSAG SCREEN (10/30/2024 3:43 PM EDT)ComponentValueRef RangeTest Method Analysis TimePerformed AtPathologist SignatureHBSAG SCREENNegativeNegativeTBH Comment: Performed at: ??[facility] ??[id number] Mirror Silverer: Maco Correa PhD, Phone: ??[phone] Specimen (Source)Anatomical Location / LateralityCollection Method / Volume Collection TimeReceived Time10/30/2024 3:43 PM EDT10/30/2024 3:50 PM EDT Narrative [facility] - 11/01/2024 2:08 PM EDT Authorizing ProviderResult TypeResult StatusCorey Simon DOLAB BLOOD ORDERABLES Final ResultPerforming OrganizationAddressty/State/ZIP CodePhone Number [facility] * RAPID PLASMA REAGIN, QUANT (10/30/2024 3:43 [...] utilized, such as Treponema pallidum (Syphilis) Screening [place] (054737) or Rapid Plasma Reagin (RPR) Test With Reflex to Quantitative RPR and Confirmatory Treponema pallidum Antibodies (388925). Performed at: ??[facility] ??[id number] Mirror Silverer: Maco Correa PhD, Phone: ??[phone] Specimen (Source)Anatomical Location / LateralityCollection Method / Volume Collection TimeReceived Time10/30/2024 3:43 PM EDT10/30/2024 3:50 PM EDT Narrative [facility] - 11/01/2024 2:08 PM EDT Authorizing ProviderResult TypeResult StatusCorey Simon DOLAB BLOOD ORDERABLES Final ResultPerforming OrganizationAddACMH Hospitalty/State/ZIP CodePhone Number [facility] * HIV AB/P24 AG WITH REFLEX (10/30/2024 3:43 PM EDT)ComponentValueRef RangeTest MethodAnalysis TimePerformed AtPathologist SignatureHIV AB/P24 AG SCREENNon ReactiveNon ReactiveTBHComment: HIV-1/HIV-2 antibodies and HIV-1 p24 antigen were NOT detected. There is no laboratory evidence of HIV infection. HIV Negative Performed at: ??[facility] ??[id number] Mirror Silverer: Maco Correa PhD, Phone: ??[phone] Specimen (Source)Anatomical Location / LateralityCollection Method / Volume Collection TimeReceived Time10/30/2024 3:43 PM EDT10/30/2024 3:50 PM EDT Narrative [facility] - 11/01/2024 6:09 AM EDT Authorizing ProviderResult TypeResult StatusCorey Simon DOLAB BLOOD ORDERABLES Final ResultPerforming OrganizationAddressCity/State/[facility] CodePhone Number [facility] * HCV ANTIBODY RFX TO QUANT PCR (10/30/2024 3:43 PM EDT)ComponentValueRef Range Test MethodAnalysis TimePerformed AtPathologist SignatureHCV ABNon ReactiveNon ReactiveTBHINTERPRETATION:Comment.TBHComment: Not infected with HCV unless early or acute infection is suspected (which may be delayed in an immunocompromised individual), or other evidence exists to indicate HCV infection. Performed at: ??[facility] ??[id number] Mirror Silverer: Maco Correa PhD, Phone: ??[phone] Specimen (Source)Anatomical Location / LateralityCollection Method / Volume Collection TimeReceived Time10/30/2024 3:43 PM EDT10/30/2024 3:50 PM EDT Narrative [facility] - 11/01/2024 8:09 AM EDT Authorizing ProviderResult TypeResult StatusCorey Simon CAGLE BLOOD ORDERABLES Final ResultPerforming OrganizationAddACMH Hospitalty/State/ZIP CodePhone Number [facility] * MLR HEMOGLOBIN A1C (10/30/2024 3:43 PM EDT)ComponentValueRef RangeTest Method Analysis TimePerformed AtPathologist SignatureGLYCOHEMOGLOBIN A1C5.24.5 - 6.2 %TBHComment: ADA RECOMMENDED LIMIT 4.0 - 6.0 ADA THERAPEUTIC TARGET < 7.0 ACTION SUGGESTED > 7.0 ESTIMATED AVERAGE MWMSWYZ888la/dLTBHSpecimen (Source)Anatomical Location / LateralityCollection Method / VolumeCollection TimeReceived Time10/30/2024 3:43 PM EDT10/30/2024 3:50 PM EDT Narrative [facility] - 10/30/2024 4:42 PM EDT Authorizing ProviderResult TypeResult StatusCorey Simon DOCLINISYNCFinal Result Performing OrganizationAddACMH Hospitalty/State/ZIP CodePhone Number [facility] * ALL TYPE AND SCREEN (10/30/2024 3:43 PM EDT)ComponentValueRef RangeTest Method Analysis TimePerformed AtPathologist SignatureBLOOD TYPEO PositiveTBHANTIBODY SCREENNEGATIVETBHSpecimen (Source)Anatomical Location / LateralityCollection Method / VolumeCollection TimeReceived Time10/30/2024 3:43 PM EDT10/30/2024 3:50 PM EDT Narrative [facility] - 10/30/2024 5:[address] [facility] , ?? Authorizing ProviderResult TypeResult StatusCorey Simon DOCLINISYNCFinal Result Performing OrganizationAddACMH Hospitalty/State/ZIP CodePhone Number [facility] * ALL RUBELLA IGG AB (10/30/2024 3:43 PM EDT)ComponentValueRef RangeTest Method Analysis TimePerformed AtPathologist SignatureRUBELLA ANTIBODIES, IGG1.00 Immune >0.99 indexTBHComment: Non-immune <0.90 ?Equivocal ??0.90 - 0.99 Immune >0.99 Performed at: ??CB - [facility] [address] [place], [place] ??[id number] Mirror Silverer: Maco Correa PhD, Phone: ??[phone] Specimen (Source)Anatomical Location / LateralityCollection Method / Volume Collection TimeReceived Time10/30/2024 3:43 PM EDT10/30/2024 3:50 PM EDT Narrative [facility] - 11/01/2024 8:09 AM EDT Authorizing ProviderResult TypeResult StatusCorey Simon DOCLINISYNCFinal Result Performing OrganizationAddressCity/State/ZIP CodePhone Number [facility] * (ABNORMAL) ALL CBC WITH AUTO DIFF (10/30/2024 3:43 PM EDT)ComponentValueRef RangeTest MethodAnalysis TimePerformed AtPathologist SignatureTBH WBC8.74.0 - 11.0 10 3/uLTBHTBH RBC4.284.20 - 5.40 10 6/uLTBHTBH HGB10.6(L)12.0 - 16.0 g/dL TBHTBH HCT32.4(L)36.0 - 48.0 %TBHTBH MCV75.7(L)81.0 - 99.0 fLTBHTBH MCH24.8(L) 26.7 - 34.0 pgTBHTBH MCHC32.729.9 - 35.2 g/dLTBHTBH RDW15.9(H)11.0 - 15.0 %TBH TBH NIM341142 - 450 10 3/uLTBHTBH MPV12.19.5 - 13.5 [...] Simon DOCLINISYNCFinal Result Performing OrganizationAddressCity/State/ZIP CodePhone Number [facility] DRUG S[facility] RAPID (URINE) (10/30/2024 3:32 PM [...] 3:32 PM EDT10/30/2024 3:51 PM EDT Narrative [facility] - 10/30/2024 4:31 PM EDT Authorizing ProviderResult TypeResult StatusCorey Simon DOCLINISYNCFinal Result Performing OrganizationAddressCity/State/ZIP CodePhone Number [facility] * POCT , urine manually resulted (10/25/2024 3:12 PM EDT)ComponentValue Ref RangeTest MethodAnalysis TimePerformed AtPathologist SignaturePreg Test, UrPositiveNegativeSpecimen (Source)Anatomical Location / LateralityCollection Method / VolumeCollection TimeReceived ClgkKfjvp30/21/2025 3:12 PM EDT Narrative Authorizing ProviderResult TypeResult [...] ?? , PHD at 28-Oct-2024 08:20:23 AM [facility] Procedure Note Prateek Baugh MD - [...] signed by PRATEEK BAUGH II, MD, PHD [id number] 08:20:23 AM [facility] Authorizing ProviderResult TypeResult StatusCorey Simon MORROW[facility] OB US PROCEDURES Final Result from Last 3 Months Insurance * Guarantor: Sameer Batista TypeRelation to PatientDate of BirthPhone Billing AddressPersonal/FdhixsVqwt23/[birth year]/2004 [address] [place] [address]
--- OUTSIDE RECORDS SUMMARY | 2025-01-20 22:13 | XMS_ITS ---
Demographics Address [address] [place] [address] Home Phone Mobile Phone Preferred Language en Marital Status Unmarried Bahai Affiliation Unknown Race Other Race Ethnic Group Unknown Author Organization [facility] Address [address] [place] [address] Care Team Providers Care Drying Machine Tender Name Role Phone Unavailable Primary Care Provider Unavailabl e Comprehensive Maternal Care ([facility]) Status:Enrolled (Active) Start date:01/07/2025 Enrollment date:01/08/2025 Enrollment reason:Identified by Health Plan NameRelationshipPhoneAmy Christofer LUNA(Responsible Staff)Licensed Practical Nurse [phone] Continued Care and Services Coordination
--- OUTSIDE RECORDS SUMMARY | 2025-01-20 22:13 | XMS_ITS | Patient Health Record ---
Author Organization Coleman dickens MD, [facility] Address [address] [place] [address] Care Team Providers Care Core Drill Operator Helper Name Role Phone Earnest Wallace DO Primary Care Provider John Cee MD, Brianda Unavailable [phone] Social History Tobacco Use: Social History Observation [...] & juice) 4 glasses of fluid daily Problems Problem Type SNOMED Code ICD Code Onset Dates Problem Status W/U Status Risk Notes Problem Heart murmur (619750794) CARDIAC MURMURS NEC (785.2) Activeconfirmed Plan Of Treatment Pending Test Test Name Order Date Echo Full with Color/ Doppler 02/23/2012 Echo Full with Color/ Doppler 10/23/2009 Insurance Providers Payer Name Payer Address Payer Phone Subscriber Number Group Number Insured Name Patient Relationship to Insured Coverage Start Date Coverage End Date [employer]/ [address] [address] [place] [address] [id number] [facility] Kamini Lyons Self - patient is the insured 5 Medical (General) History Medical History History ICD Code Cardiac murmur since 1 year of age
--- OUTSIDE RECORDS SUMMARY | 2025-01-20 22:13 | XMS_ITS | Encounter Summary ---
Demographics Address [address] [place] [address] Home Phone Mobile Phone Preferred Language en Marital Status Unmarried Mormonism Affiliation Unknown Race Other Race Ethnic Group Unknown Author Organization [facility] Address [address] [place] [address] Care Team Providers Care Ticket Sales Supervisor Name Role Phone Unavailable Primary Care Provider Unavailabl e Encounter Details DateTypeDepartmentCare Team (Latest Contact Info)Kbslrnkppkj16/03/2025bstract [facility] [address] [place] [address] Ann Beaulieu LPN [address] [place] [address] Social History Tobacco UseTypesPacks/DayYears UsedDateSmoking Tobacco: Never AssessedPHQ-2 AnswerDate RecordedPatient Health Questionnaire-2 Puqyg46403/10/2024 Estimated Date of UuafkhlgNqzxqggvSos61/19/2026ased on last menstrual period of 08/16/2024Sex and Gender InformationValueDate RecordedSex Assigned at BirthNot on fileLegal ZtuUcejme79/22/2025 10:34 AM EDTGender IdentityNot on fileSexual OrientationNot on filedocumented as of this encounter Functional Status * Over the past 2 weeks, how often have you been bothered by any of the following problems?QuestionAnswerDate of AssessmentAuthorLittle interest or pleasure in doing thingsNot at all01/08/2025 10:19 AM Ann Norton LPN Feeling down, depressed, or hopelessNot at all01/08/2025 10:19 AM Ann Norton LPNPatient Health Questionnaire-2 Gmrbj51203/10/2024 10:19 AM Ann Norton LPN documented as of this encounter Plan of Treatment DateTypeDepartmentCare Team (Latest Contact Info)Evmaesitumu21/20/2025 11:40 AM ESTRoutine [facility] KRUSE [address] [facility] [place] [address] Bernardo Montes DO [address] [place], [place] [id number] documented as of this encounter Visit Diagnoses Not on filedocumented in this encounter
--- OUTSIDE RECORDS SUMMARY | 2025-01-20 22:14 | XMS_ITS | Encounter Summary ---
Demographics Address [address] [place] [address] Home Phone Mobile Phone Preferred Language en Marital Status Unmarried Gnosticist Affiliation Unknown Race Other Race Ethnic Group Unknown Author Organization [facility] Address [address] [facility] [place] [address] Care Team Providers Care Office Assistant Name Role Phone Unavailable Primary Care Provider Unavailabl e Encounter Details DateTypeDepartmentCare Team (Latest Contact Info)Cdjhmmhcjxa02/05/2025Orders Only BRITTANY KRUSE [address] [facility] [facility] [place] [address] Meena Bowen LPN [address] [facility] [place] [address] Social History Tobacco UseTypesPacks/DayYears UsedDateSmoking Tobacco: Never AssessedPHQ-2 AnswerDate RecordedPatient Health Questionnaire-2 Mixbd07303/10/2024 Estimated Date of WhooafhqQiayohedMzi77/19/2026ased on last menstrual period of 08/16/2024Sex and Gender InformationValueDate RecordedSex Assigned at BirthNot on fileLegal PqgNsbuzi36/22/2025 10:34 AM EDTGender IdentityNot on fileSexual OrientationNot on filedocumented as of this encounter Plan of Treatment DateTypeDepartmentCare Team (Latest Contact Info)Impkhrarowf15/20/2025 11:40 AM ESTRoutine [facility] VILLAN [address] [facility] [place] [address] Bernardo Montes DO [address] [facility] [place] [address] documented as of this encounter Procedures Procedure NamePriorityDate/TimeAssociated DiagnosisCommentsPAP TEST, EXTERNAL Wgmpdop4812/25/2024 12:00 AM EDTdocumented in this encounter Results * PAP TEST, EXTERNAL (12/25/2024 12:00 AM EDT) Narrative Authorizing ProviderResult TypeResult StatusFazio Nurse [facility] CYTOLOGY ORDERABLESFinal ResultPerforming OrganizationAddressCity/State/ZIP CodePhone Number EXTERNAL LAB documented in this encounter Visit Diagnoses Not on filedocumented in this encounter
--- OUTSIDE RECORDS SUMMARY | 2025-01-20 22:14 | XMS_ITS | Clinical Summary ---
Demographics Address [address] [place] [address] Mobile Phone Email Address Preferred Language Icelandic Marital Status Significant Other Islam Affiliation Unknown Race Unknown Ethnic Group Unknown Author Organization [facility] tem Address [id number] [address] [place] [address] Care Team Providers Care Release Coordinator Name Role Phone Cherelle Valdez Davion CIRCUIT BREAKER ASSEMBLER-UPPER EXTREMITY SURGEON Primary Care Provider + Allergies No known active allergies Medications MedicationSigDispense QuantityRefillsLast FilledStart DateEnd DateStatus vit no.465-uudp-mkniq acid ( VITAMIN) 27 mg iron- 800 mcg tablet Indications:Lactating motherTake 1 tablet by mouth in the morning. 90 tablet 5Active Active Problems CommentsYes No known active problems Encounters DateTypeDepartmentCare KhccFmtjpcftodw30/17/2025 9:14 PM EDT - 11/21/2024 11:29 PM EDTEmergency [facility] [address] [place] [address] Teresa Barkley DO Hyperemesis gravidarum (Primary Dx) Discharge Disposition: Home11/21/2024Travelfrom Last 3 Months Immunizations ImmunizationAdministration DatesNext BeqKNX0504/25/2023(Deferred: - pt immune)RSV, bivalent, protein subunit RSVpreF, diluent reconstituted, 0.5 mL, PF01/25/2024 Tdap104/25/2023(Deferred: - received in ),01/09/20241066Snradjyfi14/19/2024 () Family History Medical HistoryRelationNameCommentsNo Known ProblemsFatherDiabetesMotherDiabetes Paternal GrandmotherDiabetesPaternal UncleRelationNameStatusCommentsFather DeceasedMotherAlivePaternal GrandmotherPaternal UncleAlive Social History Tobacco UseTypesPacks/DayYears UsedDateSmoking Tobacco: NeverSmokeless Tobacco: Never Tobacco Cessation:Counseling Given: Not Answered Alcohol UseStandard Drinks/WeekCommentsNot Currently0 (1 standard drink = 0.6 oz pure alcohol)[facility] UtilitiesAnswerDate RecordedIn the past 12 months [...] living?No02/22/2024Edinburgh Depression ScaleAnswer Date RecordedEdinburgh Depression Scale Mjszb553The thought of harming myself has occurred to [...] True11/21/2024CommentsYesSex and Gender InformationValueDate RecordedSex Assigned at RuoecYpbdbh33/27/2024 11:00 AM EDTLegal DpoKymvvm88/27/2024 10:58 AM EDTGender BzfyznswSlibqh07/27/2024 11:00 AM EDTSexual OrientationNot on file Last Filed Vital Signs Vital SignReadingTime TakenCommentsBlood Fiflyctv828/7709 11:26 PM EDT Oiheb728011/21/2024 11:26 PM EVPKsqzqrpgkek82.9 ??C (98.5 ??F)11/21/2024 9:19 PM EDTRespiratory Hvwo950511/21/2024 11:26 PM EDTOxygen Oxbozqvisn260%11/21/2024 11:26 PM EDTInhaled Oxygen Concentration--Oujokf94.1 kg (148 lb)11/21/2024 9:19 PM HEJVylllj476.5 cm (5' 2 )04/05/2024 2:39 PM ESTBody Mass Index27.0704/05/2024 2:39 PM EST Plan of Treatment Health MaintenanceDue DateLast DoneCommentsAdult BMI Follow Up Plan07/27/2021 Chlamydia Zgeilmyoc24/ap Smear07/27/2024Influenza Vaccine 11/05/2024Depression Fmrpohppa94/dult BMI Yclpqpmsm02/17/2026 11/21/2024Tobacco Ttdmiyefp68DTaP,Tdap and Td Vaccines (2 - Td or Tdap)SV ( or age 60+ yrs)Odayseivu61/20/2024 Medical Devices Not on file Procedures Procedure NamePriorityDate/TimeAssociated DiagnosisCommentsPOCT NURSING URINE MACROSCOPIC ORJmowxmi22/17/2025 9:53 PM EDT ER EXTRA PRNDRJZKC27/17/2025 9:51 PM EDT BASIC METABOLIC CQLFDDSBV66/17/2025 9:51 PM EDT CBC WITH AUTO OPBYMZWLVUMZDFYG15/17/2025 9:51 PM EDT CHLAMYDIA/GC BY PCR ZEYNEP DKDUDcedpwq22/08/2024 from Last 3 Months or Most Recently Relevant to Health Maintenance Results * (ABNORMAL) POCT Nursing Urine Macroscopic UA (11/21/2024 9:53 PM EDT)Component ValueRef RangeTest MethodAnalysis TimePerformed AtPathologist SignaturePOC Urine Specific Morrow>=1.030(A)1.010, 1.015, 1.020, 1.7386711/21/2024 9:56 PM [facility] Urine Leukocyte EsteraseTrace(A) Rcvpkmwt89/17/2025 9:[address] [facility]rine JawyxnsMihzdkdmUsstzbvl28/17/2025 9:56 PM [facility] Urine pH6.55.0, 6.0, 6.5, 7.0, 7.5, 8.0, 8.5, 5.509 9:56 PM [facility] Urine Jzweqgc50 mg/dL(A)Negative 11/21/2024 9:56 PM [facility] Urine Glucose AzlnwtwzTycvnrmn67/17/2025 9:56 PM [facility] Urine Qesealw31 mg/dL(A)Ebqodgwv24/17/2025 9:56 PM [facility] Urine Urobilinogen1.0 E.U./dL11/21/2024 9:56 PM EDT [facility] Urine BilirubinSmall(A)Negative 11/21/2024 9:56 PM [facility] Urine Blood/HGB AhzjcajlLpakacgt33/17/2025 9:56 PM [facility] Specimen (Source)Anatomical Location / LateralityCollection Method / Volume Collection TimeReceived TzrnYaehz78/17/2025 9:53 PM EDT11/21/2024 9:56 PM EDT Narrative Authorizing ProviderResult TypeResult StatusTeresa Barkley DOPOINT OF CARE TEST ORDERABLESFinal ResultPerforming OrganizationAddressCity/State/ZIP CodePhone Number [facility] [address] [facility] [place] [address], * Extra Urine (11/21/2024 9:51 PM EDT)ComponentValueRef RangeTest MethodAnalysis TimePerformed AtPathologist SignatureExtra TubeAuto Enbbzkqo08/17/2025 11:01 PM [facility]imen (Source)Anatomical Location / LateralityCollection Method / VolumeCollection TimeReceived TimeUrineUrine specimen collection, clean catch / Zunwbsa5311/21/2024 9:51 PM EDT11/21/2024 10:16 PM EDT Narrative Authorizing ProviderResult TypeResult StatusAlistomi Barkley DOURINE ORDERABLES Final ResultPerforming OrganizationAddressCity/State/ZIP CodePhone Number [facility] [address] [place] [address], * (ABNORMAL) CBC auto differential (11/21/2024 9:51 PM EDT)ComponentValueRef RangeTest MethodAnalysis TimePerformed AtPathologist SignatureWBC6.04 - 11 x10E9/L11/21/2024 10:27 PM [facility]RBC Count4.59 3.8 - 5.2 X10E12/L11/21/2024 10:27 PM [facility] Gxcoxasnpr92.1(L)11.7 - 15.5 g/dL11/21/2024 10:27 PM [facility]ITALHematocrit33.9(L)35 - 47 %11/21/2024 10:27 PM [facility]ITALMCV74(L)80 - 100 fL11/21/2024 10:27 PM [facility]ITALMCH24.3(L)27 - 34 pg11/21/2024 10:27 PM [facility]ITALMCHC32.932 - 36 g/dL11/21/2024 10:27 PM [facility]ITALRDW15.8(H)11.5 - 15 %11/21/2024 10:27 PM [facility]ITALPlatelet Rzfxc760314 - 450 X10E9/L11/21/2024 10:27 PM EDMEMORIAL HEALTH SYSTEMMPV10.57 - 12 fL11/21/2024 10:27 PM EDT [facility]ITALNeutrophils %74.8%11/21/2024 10:27 PM EDT [facility]ITALLymphocytes %18.2%11/21/2024 10:27 PM EDT [facility]Monocytes %6.1%11/21/2024 10:27 PM EDT [facility]ITALEosinophils %0.7%11/21/2024 10:27 PM EDT [facility]ITALBasophils %0.2%11/21/2024 10:27 PM EDT [facility]ITALNeutrophils Absolute (A)4.51.5 - 6.6 10*3/uL11/21/2024 10:27 PM EDTPPROMEDICA BAY PARK HOSPITALLymphocytes Absolute1.11.0 - 3.5 10*3/11/21/2024 10:27 PM EDTPMARIETTA OSTEOPATHIC CLINIC HOSPITALMonocytes Absolute0.40.0 - 0.9 10*3/11/21/2024 10:27 PM EDTPMARIETTA OSTEOPATHIC CLINIC HOSPITALEosinophils Absolute0.00.0 - 0.4 10*3/uL11/21/2024 10:27 PM EDTPPROMEDICA BAY PARK HOSPITALBasophils Absolute0.00.0 - 0.2 10*3/11/21/2024 10:27 PM EDMEMORIAL HEALTH SYSTEMDifferential TypeAUTOMATED GRVLNYSBOGNM09/17/2025 10:27 PM [facility]pecimen (Source)Anatomical Location / LateralityCollection Method / VolumeCollection TimeReceived TimeBloodVenous blood / Kioodjk4511/21/2024 9:51 PM EDT11/21/2024 10:16 PM EDT Narrative Authorizing ProviderResult TypeResult StatusAlistomi CAGLE BLOOD ORDERABLESFinal ResultPerforming OrganizationAddressCity/State/ZIP CodePhone Number [facility] [address] [place] [address], * (ABNORMAL) Basic Metabolic Panel (11/21/2024 9:51 PM EDT)ComponentValueRef RangeTest MethodAnalysis TimePerformed AtPathologist WdyocdvdzYBRBWD387400 - 146 mmol/L11/21/2024 10:33 PM [facility]ITALPOTASSIUM 3.2(L)3.5 - 5.0 mmol/L11/21/2024 10:33 PM [facility]ITALCHLORIDE10598 - 109 mmol/L11/21/2024 10:33 PM [facility]OSPITALCARBON NYWOWBA3176 - 32 mmol/L11/21/2024 10:33 PM EDT [facility]ITALANION GAP85 - 15 mmol/L11/21/2024 10:33 PM [facility]ITALBLOOD UREA XNMSYSDQ50 - 23 mg/dL 11/21/2024 10:33 PM [facility]ITALCREATININE0.510.40 - 1.00 mg/dL11/21/2024 10:33 PM [facility]ITALComment: METHOD TRACEABLE TO IDMS HSZDTSLYFWIZMNP523(H)65 - 99 mg/dL11/21/2024 10:33 PM [facility]ITALCALCIUM8.88.5 - 10.5 mg/dL11/21/2024 10:33 PM [facility]OS[facility]ITALEGFR Non-Race Dependent>90>=60 ml/min/1.73sq.m011/21/2024 10:33 PM [facility] Comment: eGFR not reported due to non-numeric value for Creatinine. Reported eGFR is based on the CKD-EPI 2020 equation that does not use a race coefficient. Specimen (Source)Anatomical Location / LateralityCollection Method / Volume Collection TimeReceived TimeBloodVenous blood / Lgysqdy4911/21/2024 9:51 PM EDT 11/21/2024 10:16 PM EDT Narrative Authorizing ProviderResult TypeResult StatusAlistomi CAGLE BLOOD ORDERABLESFinal ResultPerforming OrganizationAddressCity/State/ZIP CodePhone Number [facility] [address] [facility] [place] [address], * Chlamydia/GC by PCR Zeynep Swab (07/13/2023)ComponentValueRef RangeTest Method Analysis TimePerformed AtPathologist SignatureChlamydia Dna(Pcr)Negative MANUALLY TRANSCRIBED RESULTSGonorrhoeae Dna(Pcr)NegativeMANUALLY TRANSCRIBED RESULTS Narrative Authorizing ProviderResult TypeResult StatusCorie Ritu Baca MDMICROBIOLOGY - GENERAL ORDERABLESFinal ResultPerforming OrganizationAddressCity/State/ZIP Code Phone Number MANUALLY TRANSCRIBED RESULTS from Last 3 Months or Most Recently Relevant to Health Maintenance Insurance * Guarantor: Kamini ColesAccount TypeRelation to PatientDate of BirthPhoneBilling AddressPersonal/LiedeiIsjn44/23/2006 [address] [place] [address] Advance Directives * Full Code (Latest Code Status on File) Date ActivatedDate SftxbqxtkeuQdnnproh35/17/2024 11:24 AM02/23/2024 1:21 PM Care Teams Team MemberRelationshipSpecialtyStart DateEnd Date Cherelle Valdez, ERIKA-UPPER EXTREMITY SURGEON [address] [place] [address] PCP - GeneralObstetrics & Gynecology03/15/24
--- OUTSIDE RECORDS SUMMARY | 2025-01-20 22:15 | XMS_ITS | Encounter Summary ---
Demographics Address [address] [place] [address] Home Phone Mobile Phone Preferred Language en Marital Status Unmarried Jain Affiliation Unknown Race Other Race Ethnic Group Unknown Author Organization [facility] Address [address] [place] [address] Care Team Providers Care Exhibits Curator Name Role Phone Unavailable Primary Care Provider Unavailabl e Encounter Details DateTypeDepartmentCare Team (Latest Contact Info)Tefefaifdfn10/04/2025Patient Outreach [facility] [address] [place] [address] Ann Beaulieu LPN [address], [place] [id number] Social History Tobacco UseTypesPacks/DayYears UsedDateSmoking Tobacco: Never AssessedPHQ-2 AnswerDate RecordedPatient Health Questionnaire-2 Tntdl11903/10/2024 Estimated Date of ZlqgjwyyGirexkajDmi15/19/2026Based on last menstrual period of 08/16/2024Sex and Gender InformationValueDate RecordedSex Assigned at BirthNot on fileLegal IvzJcocsm01/22/2025 10:34 AM EDTGender IdentityNot on fileSexual OrientationNot on filedocumented as of this encounter Functional Status * Over the past 2 weeks, how often have you been bothered by any of the following problems?QuestionAnswerDate of AssessmentAuthorLittle interest or pleasure in doing thingsNot at all01/08/2025 10:19 AM Ann Norton LPN Feeling down, depressed, or hopelessNot at all01/08/2025 10:19 AM Ann Norton LPNPatient Health Questionnaire-2 Mekaf98603/10/2024 10:19 AM Ann Norton LPN documented as of this encounter Progress Notes * Ann Beaulieu LPN - 01/08/2025 10:19 AM EST Initial Outreach. Pt reports she feels baby moving frequently. Appetite and sleep are adequate. Bowels are regular. Pt denies any depression or difficulty coping at this time. Pt agrees to monthly outreach. Pt currently in OB office for ultrasound and call was somewhat short. Meds reviewed. Next OBOV 01/24/25. documented in this encounter Plan of Treatment DateTypeDepartmentCare Team (Latest Contact Info)Opqoavymawd10/20/2025 11:40 AM ESTRoutine [facility] [address] [place] [phone] Bernardo Montes DO [address] [facility] [address] [place] [address] documented as of this encounter Visit Diagnoses Not on filedocumented in this encounter
[2025-01-20 22:28] VITALS: TEMP 36.8
[2025-01-20 22:34] VITALS: BP 100/58; PULSE 87
[2025-01-20 22:42] LABS: Glucose Urine UA NEGATIVE (NEGATIVE)
[2025-01-20 22:54] LABS: Cast Seen? NONE SEEN #/LPF (NONE SEEN); Crystals Seen? None Seen #/HPF (None Seen); Urine Culture Indicated NO
== END 2025-01-20 23:00 | disposition home or self-care (01) ==
LOC: FBC 22:09
PROVIDERS: Admitting Provider Obstetrics & Gynecology; Visit Provider Obstetrics & Gynecology
DX: O46.92 Antepartum hemorrhage, unspecified, second trimester (principal); Z3A.22 22 weeks gestation of pregnancy
CPT/HCPCS: 59025; 81001; G0378; G0379